=== PATIENT | male | born 2000 | race Asian ===

== ENCOUNTER 2022-05-09 18:05 | Inpatient (IN) ==
--- NOTE | 2022-05-09 18:57 | XRay Report ---
XR chest 1V portable HISTORY: 21 years-old Male cp sob acute chest pain with shortness of breath COMPARISON: None TECHNIQUE: AP view the chest FINDINGS: Moderate size left-sided pneumothorax with pleural separation at the left lung apex of 5.8 cm and lat eral pleural separation of approximately 3 cm. Left midlung atelectasis. Cardiomediastinal and hilar silhouettes are within normal limits. No definite midline shift. The right lung is clear. No acute fr acture. IMPRESSION: Moderate sized left-sided pneumothorax. ACT 112: Negative or not required by law. The above report was generated using voice recognition software. It may contain grammatical, syntax o r spelling errors. Electronically signed by: Jarocho Christensen M.D. 05/09/2022 6:55 PM
[2022-05-09] MEDS ORDERED: LIDOCAINE 1%/EPINEPHRINE 1:100,000 50 ML VIAL INFIL ONE (19:00)
[2022-05-09] MEDS ORDERED: MoRPHine SULFATE 4 MG/ML 1 ML CARP\\VIAL IV STA (19:02)
[2022-05-09] MEDS ORDERED: LORazepam 2 MG/1 ML VIAL IV STA (19:02)
[2022-05-09 19:14] LABS: Basophils # (auto) 0.03 K/uL (0-0.2); Basophils % (auto) 0.5 %; Eosinophils # (auto) 0.24 K/uL (0-0.50); Eosinophils % (auto) 3.6 %; Hematocrit (blood only) 46.7 % (40.1-51.0); Hemoglobin 15.5 g/dl (14.0-18.0); Immature Granulocytes # (auto) 0.01 K/uL (0.00-0.02); Immature Granulocytes % (auto) 0.2 %; Lymphocytes # (auto) 2.24 K/uL (1.2-3.4); Lymphocytes % (auto) 33.8 %; Mean Corpuscular Hemoglobin 28.3 pg (25.0-34.0); Mean Corpuscular Hgb Conc 33.2 g/dL (32.0-36.0); Mean Corpuscular Volume 85.2 fL (80.0-100.0); Mean Platelet Volume 9.8 fL (9.4-12.4); Monocytes # (auto) 0.29 K/uL (0.24-0.82); Monocytes % (auto) 4.4 %; Neutrophils # (auto) 3.82 K/uL (1.4-6.5); Neutrophils % (auto) 57.5 %; Platelet Count 209 K/uL (130-400); RDW Coefficient of Variation 13.2 % (11.5-14.5); RDW Standard Deviation 41.4 fL (36.4-46.3); Red Blood Count 5.48 M/uL (4.63-6.08); White Blood Count 6.63 K/ul (4.8-10.8)
[2022-05-09 19:47] LABS: Alanine Aminotransferase 9 U/L (7-52); Albumin Globulin Ratio 1.6 (0.9-2); Albumin Level 4.7 gm/dl (3.4-5.0); Alkaline Phosphatase 55 U/L (34-104); Anion Gap 5 (3-11); Aspartate Aminotransferase 16 U/L (13-39); BUN Creatinine Ratio 12.5 (10-20); Bilirubin,Total 0.8 mg/dl (0.2-1.0); Blood Urea Nitrogen 13 mg/dl (6-23); Calcium 9.6 mg/dl (8.5-10.1); Carbon Dioxide 31 mmol/L (21-32); Chloride 105 mmol/L (98-107); Creatinine Clr Calc Pharmacy 107.4 ml/min; Est GFR (African American) 118.4 ml/min; Est GFR (Non-African American) 102.2 ml/min; Globulin 2.9 gm/dl (2.5-4.0); Glucose 91 mg/dl (70-99(Fasting)); Lipase 26 U/L (11-82); Potassium 4.5 mmol/L (3.5-5.1); Sodium 141 mmol/L (136-145); Total Protein 7.6 gm/dl (6.0-8.3)
[2022-05-09 19:48] LABS: Troponin I High Sensitivity < 2.3 pg/ml (0-20)
--- NOTE | 2022-05-09 20:48 | XRay Report ---
XR chest 1V portable HISTORY: 21 years-old Male thoravent insertion left-sided pneumothorax COMPARISON: Chest radiograph of same day at 6:47 PM TECHNIQUE: AP view of the chest FINDINGS: Left-sided pneumothorax appears stable to slightly increased in size with apical pleural separation o f approximately 6 cm, previously 5.8 cm. Status post placement of a left-sided chest tube with distal tip projected over the lateral aspect of the left hemithorax. Question mild rightward midline shift. Mild left lung volume loss. The right lung is clear. The bones appear grossly intact. IMPRESSION: Status post placement of a left-sided chest tube. The left-sided pneumothorax has mildly increased in size and there is now mild rightward midline shift which is suspicious for developing te nsion component. Findings were discussed with Dr. Gutierrez on 05/09/2022 at 8:45 PM. ACT 112: Negative or not required by law. The above report was generated using voice recognition software. It may contain grammatical, syntax o r spelling errors. Electronically signed by: Jarocho Christensen M.D. 05/09/2022 8:45 PM
--- NOTE | 2022-05-09 21:10 | XRay Report ---
SINGLE VIEW CHEST CLINICAL HISTORY: Chest tube placement. FINDINGS: An AP, portable, upright chest radiograph is compared to study performed earlier the same d ay 05/09/2022. The cardiomediastinal silhouette is unremarkable. A left pleural catheter has been repo sitioned. There is a small residual left apical pneumothorax with approximately 6 mm of pleural separ ation. The lungs otherwise clear. The bony thorax is grossly intact. IMPRESSION: A left pleural catheter has been repositioned and there is a small residual left apical p neumothorax. This has significantly decreased in size from previous. ACT 112: Negative or not required by law. Electronically signed by: Krish Montano M.D. 05/09/2022 9:08 PM
--- NOTE | 2022-05-09 21:24 | History & Physical Report ---
Date of Service May 09, 2022 Assessment & Plan (1) Spontaneous pneumothorax: Plan: Patient is a 21 yo male with PMHx of COVID-19 infection in March 2022 and latent TB (completed treatment in [facility] in Jan 2020) admitted at [facility] on 05/09/22 due to spontaneous pneumothorax. Spontaneous pneumothorax - Thora-vent placed in the ER prior to admission; maintain catheter overnight - Recheck CXR in AM - Continue supplemental O2 - Tylenol po prn for pain control - No indication for infectious process at this time FENGI: Regular diet Code status: Full code Dispo: Admit to tele History of Present Illness Chief Complaint: SOB Primary Care Provider: [facility] Patient is a 21 yo male with PMHx of COVID-19 infection in March 2022 and latent TB (completed treatment in [facility] in Jan 2020) admitted at [facility] on 05/09/22 due to spontaneous pneumothorax. Patient states that on Thursday afternoon, 3 days ago, after walking back to his room from class, he was sitting in a chair and had an acute onset of "left lung pain." Patient describes this pain as "feeling like the left lung was constricting and moving around." He subsequently had some SOB and CAGLE. Patient notes that this sensation was reminiscent of a pain he had about 1 year ago, but at that time he did not seek medical evaluation. Due to the recurrence, he opted to seek medical evaluation for this episode. He first went to [facility] and they subsequently sent him here due to a pneumothorax on CXR. Patient states that aside from COVID 1 month ago, he has had no other recent URI symptoms including no cough, congestion, rhinorrhea, or fever. He denies any recent trauma including no MVC, physical assault, or sports-related blunt force trauma to the chest wall. No recent travel or flight. 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 He denies abdominal pain, nausea, vomiting, headache, lightheadedness, dizziness, paresthesia, or any other symptoms. In the ER, CXR confirmed a "moderate size left-sided pneumothorax with pleural separation at the left lung apex of 5.8 cm and lateral plelural separation of approximately 3 cm." A left-sided chest tube was placed by ER physician. CBC and CMP are unremarkable. COVID negative. Allergies Allergy/AdvReac Type Severity Reaction Status Date / Time No Known Allergies Allergy Verified 05/09/22 21:51 Home Medications Medication Instructions Recorded Confirmed Type acetaminophen 325 mg tablet 650 mg PO DIRECTED PRN 05/09/22 05/09/22 History (Tylenol) PAIN/FEVER ibuprofen 200 mg tablet (Advil) 200 mg PO DIRECTED PRN 05/09/22 05/09/22 History PAIN/FEVER Past Med/Surg History Medical History (Updated 05/09/22 @ 23:25 by Gretta Munroe, DO) Spontaneous pneumothorax Social History Smoking Status: Never smoker Second Hand Exposure: No; Do You Dip or Chew Tobacco: No; Tobacco Cessation Education Requested by Patient: No Hx Alcohol Use: No Hx Substance Use: No Preferred Language: Maltese Communication Ability: Effective Time Study Clerk Required: No Beliefs That Will Affect Care: None Current Living Situation: Other Current Living Situation Comment: roomate Other Information That Helps Us Care for You: No Feels Safe at Home: Yes Safety Concerns: Feels Safe At This Time Assistive Devices: None Review of Systems Review of Systems: See HPI Physical Exam Physical Exam: GENERAL: No acute distress. Well developed and well nourished. Vital signs reviewed as above. EYES: EOMI. Anicteric sclerae. HENT: Moist mucous membranes. Oxymask in place. RESPIRATORY: Right lung clear to auscultation in all lung leyva. Left lung with absent breath sounds at apex. Otherwise CTA w/o wheezing or crackles. CARDIOVASCULAR: Regular rate and rhythm. No murmurs. No JVD. CHEST WALL: Thora vent in place, left lateral chest wall. ABDOMEN: Soft, non-tender and non-distended. Normal bowel sounds. EXTREMITIES: No edema. Non-tender. 5/5 strength in BUE and BLE. SKIN: Warm, dry. NEUROLOGIC: A/O x3. Normal speech. No focal neurological deficits. PSYCHIATRIC: Cooperative. Appropriate mood and affect. Results & Data Results & Data ([facility]) Vital Signs (Past 12 Hours) Vital Signs Temp Pulse Pulse Resp BP Pulse Ox O2 Del Method 05/09/22 20:40 74 20 100 05/09/22 20:40 123/90 05/09/22 20:35 136/95 05/09/22 20:35 74 14 100 05/09/22 20:30 74 17 91 05/09/22 20:30 135/93 05/09/22 20:25 80 20 100 05/09/22 20:25 130/91 05/09/22 20:20 82 21 100 05/09/22 20:20 130/84 05/09/22 20:15 80 16 100 05/09/22 20:15 134/90 05/09/22 20:10 77 17 100 05/09/22 20:10 130/91 05/09/22 20:05 76 22 100 05/09/22 20:05 129/91 05/09/22 20:00 76 16 100 05/09/22 20:00 142/89 H 05/09/22 19:55 75 20 100 05/09/22 19:55 131/83 05/09/22 19:50 71 13 100 05/09/22 19:50 133/83 05/09/22 19:45 143/94 H 05/09/22 19:45 74 18 100 05/09/22 19:40 69 18 100 05/09/22 19:40 135/89 05/09/22 19:35 75 22 100 05/09/22 19:35 148/84 H 05/09/22 19:30 95 H 24 99 05/09/22 19:30 140/92 05/09/22 19:25 70 18 100 05/09/22 19:25 138/103 H 05/09/22 19:20 69 21 100 05/09/22 19:20 141/93 H 05/09/22 19:10 65 21 100 05/09/22 19:00 65 25 H 100 05/09/22 19:00 138/87 05/09/22 18:53 75 18 99 05/09/22 19:05 77 19 99 Room Air 05/09/22 19:01 Room Air 05/09/22 19:03 70 20 99 Room Air 05/09/22 19:03 99 Room Air 05/09/22 18:37 36.9 C 84 20 123/93 99 Room Air Laboratory Results 05/09/22 05/09/22 05/09/22 Range/Units 19:51 19:07 19:07 WBC 6.63 (4.8-10.8) K/ul RBC 5.48 (4.63-6.08) M/uL Hgb 15.5 (14.0-18.0) g/dl Hct 46.7 (40.1-51.0) % MCV 85.2 (80.0-100.0) fL MCH 28.3 (25.0-34.0) pg MCHC 33.2 (32.0-36.0) g/dL RDW Std Deviation 41.4 (36.4-46.3) fL RDW Coeff of [place] 13.2 (11.5-14.5) % Plt Count 209 (130-400) K/uL MPV 9.8 (9.4-12.4) fL Immature Gran % (Auto) 0.2 % Neut % (Auto) 57.5 % Lymph % (Auto) 33.8 % White % (Auto) 4.4 % Eos % (Auto) 3.6 % Baso % (Auto) 0.5 % Neut # (Auto) 3.82 (1.4-6.5) K/uL Lymph # (Auto) 2.24 (1.2-3.4) K/uL White # (Auto) 0.29 (0.24-0.82) K/uL Eos # (Auto) 0.24 (0-0.50) K/uL Baso # (Auto) 0.03 (0-0.2) K/uL Immature Gran # (Auto) 0.01 (0.00-0.02) K/uL Sodium 141 (136-145) mmol/L Potassium 4.5 (3.5-5.1) mmol/L Chloride 105 (98-107) mmol/L Carbon Dioxide 31 (21-32) mmol/L Anion Gap 5 (3-11) BUN 13 (6-23) mg/dl Creatinine 1.04 (0.6-1.4) mg/dl Est Cr Clr Drug Dosing 107.4 ml/min Est GFR ( Amer) 118.4 ml/min Est GFR (Non-Af Amer) 102.2 ml/min BUN/Creatinine Ratio 12.5 (10-20) Glucose 91 (70-99(Fasting)) mg/dl Calcium 9.6 (8.5-10.1) mg/dl Total Bilirubin 0.8 (0.2-1.0) mg/dl AST 16 (13-39) U/L ALT 9 (7-52) U/L Alkaline Phosphatase 55 (34-104) U/L Troponin I High Sens < 2.3 (0-20) pg/ml Total Protein 7.6 (6.0-8.3) gm/dl Albumin 4.7 (3.4-5.0) gm/dl Globulin 2.9 (2.5-4.0) gm/dl Albumin/Globulin Ratio 1.6 (0.9-2) Lipase 26 (11-82) U/L SARS-CoV-2, RNA, NAAT NEGATIVE (NEGATIVE) Diagnostic Findings [place], [place] [phone] XRay Report Patient:GRISEL EATON Admit Date:05/09/22 MR#:[id number] Address1: Acct ID:[id number] Address2: Date:[address] [facility] Zip: Age:21 Location:ED Sex:M Room/Bed: Att Phy: Diagnosis:LUNG ISSUES, CHEST PAIN [place] Phy:PCP,NO Service Date:05/09/22 [facility] Phy: Interpreting Phy:Jarocho ChristensenAdmit Phy: Ordering Phy:Giorgio Gutierrez MD cc: ~ XR chest 1V portable HISTORY: 21 years-old Male cp sob acute chest pain with shortness of breath COMPARISON: None TECHNIQUE: AP view the chest FINDINGS: Moderate size left-sided pneumothorax with pleural separation at the left lung apex of 5.8 cm and lateral pleural separation of approximately 3 cm. Left midlung atelectasis. Cardiomediastinal and hilar silhouettes are within normal limits. No definite midline shift. The right lung is clear. No acute fracture. IMPRESSION: Moderate sized left-sided pneumothorax. ACT 112: Negative or not required by law. The above report was generated using voice recognition software. It may contain grammatical, syntax or spelling errors. Electronically signed by: Jarocho Christensen M.D. 05/09/2022 6:55 PM Dictated:05/09/[id number] Transcribed: 05/09/221853 Supervising Physician Co-Signing Physician Notes Patient seen and examined, chart reviewed, case discussed with Dr. Munroe and I agree with the assessment and plan as above. In brief, patient is a 21yo male presenting with spontaneous pneumothorax HD stable, adequate oxygenation on room air. Thoravent placed in ER On exam he is resting comfortably, NAD Skin - intact HEENT - NC/AT, PERRL, MMM, neck supple Heart - +S1/S2, regular, no m/r/g Lungs - diminshed breath sounds left apex, Thora-vent in place left mid- clavicular line Abd - +BS, soft, NT/ND Ext - warm, well perfused Labs and images reviewed Assessment/Plan: 21yo male with spontaneous PTX s/p Thoravent placement with o verall improvement -Repeat CXR in AM -Maintain thoravent Resident Activity Tracking Resident Involvement: Resident Care Provided Care Provided: Adult Hospital Medicine
--- NOTE | 2022-05-09 21:57 | XRay Report ---
SINGLE VIEW CHEST CLINICAL HISTORY: Pneumothorax. FINDINGS: 2 AP, portable, upright chest radiographs are compared to study is performed earlier the 05/09/2022. The cardiomediastinal silhouette is unremarkable. A left pleural catheter is again noted. There is a small but enlarging right apical pneumothorax with approximately 2.3 cm of apical p leural separation. The lungs otherwise clear. The bony thorax is grossly intact. IMPRESSION: A left pleural catheter is in place and a small left apical pneumothorax has increased in size from the most recent prior study. ACT 112: Negative or not required by law. Electronically signed by: Krish Montano M.D. 05/09/2022 9:55 PM
[2022-05-09] MEDS ORDERED: ACETAMINOPHEN 325 MG TAB PO PRN (23:27)
--- NOTE | 2022-05-10 02:27 | Billing Data ---
Date of Service May 09, 2022 Coding Level of Care Code 33823 INT INP/OBS CARE
--- NOTE | 2022-05-10 03:28 | Emergency Department Note ---
History of Present Illness General Chief complaint: Shortness of Breath/Dyspnea Stated complaint: LUNG ISSUES, CHEST PAIN Time Seen by Provider: 05/09/22 18:46 History of Present Illness Provider complaint: Chest pain shortness of breath Onset (ago): day(s) 2 Location: chest and left Radiation: non-radiation Maximum Pain Intensity: 4 Current Pain Intensity: 4 Quality: + stabbing and + sharp Associated symptoms: + chest pain and + shortness of breath 21-year-old male presents emergency department for left-sided chest pain. Patient reports that his symptoms began 2 days ago. He reports his pain is over the left chest and radiates to his back. He reports no cough. No traumas or injuries. No recent travel. No cough. No fever. Home Medications Medication Instructions Recorded Confirmed Type acetaminophen 325 mg tablet 650 mg PO DIRECTED PRN 05/09/22 05/09/22 History (Tylenol) PAIN/FEVER ibuprofen 200 mg tablet (Advil) 200 mg PO DIRECTED PRN 05/09/22 05/09/22 History PAIN/FEVER Allergies Allergy/AdvReac Type Severity Reaction Status Date / Time No Known Allergies Allergy Verified 05/09/22 21:51 Past Med/Surg History Medical History No pertinent family history Spontaneous pneumothorax Surgical History No pertinent past surgical history Social History Smoking Status: Never smoker Second Hand Exposure: No; Do You Dip or Chew Tobacco: No; Tobacco Cessation Education Requested by Patient: No Hx Alcohol Use: No Hx Substance Use: No Preferred Language: Armenian Communication Ability: Effective Ceiling Insulation Blower Required: No Beliefs That Will Affect Care: None Current Living Situation: Other Current Living Situation Comment: roomate Other Information That Helps Us Care for You: No Feels Safe at Home: Yes Safety Concerns: Feels Safe At This Time Assistive Devices: None Physical Exam Vital Signs Vital Signs - 24 hr 05/09/22 18:37 05/09/22 19:03 05/09/22 19:03 Temperature 36.9 C Temperature Source Temporal Artery Scan Pulse Rate 84 Pulse Rate [Apical] 70 Pulse Rate from SpO2 Sensor Pulse Rhythm Respiratory Rate 20 20 Respiratory Effort / Characteristics Non-Labored Spontaneous Respiratory Depth Normal Normal Respiratory Pattern Regular Blood Pressure 123/93 Blood Pressure Mean 103 Pulse Oximetry 99 99 99 Oxygen Delivery Method Room Air Room Air Room Air Sepsis Recent Fever Within 48 Hours No Sepsis New/Unexplained Change in Mental Status No Sepsis Action Taken by Nursing No Action Required 05/09/22 19:01 05/09/22 19:05 05/09/22 18:53 Temperature Temperature Source Pulse Rate 77 75 Pulse Rate [Apical] Pulse Rate from SpO2 Sensor 77 Pulse Rhythm Regular Respiratory Rate 19 18 Respiratory Effort / Characteristics Non-Labored Spontaneous Respiratory Depth Normal Respiratory Pattern Regular Blood Pressure Blood Pressure Mean Pulse Oximetry 99 99 Oxygen Delivery Method Room Air Room Air Sepsis Recent Fever Within 48 Hours Sepsis New/Unexplained Change in Mental Status Sepsis Action Taken by Nursing 05/09/22 19:00 05/09/22 19:00 05/09/22 19:10 Temperature Temperature Source Pulse Rate 65 65 Pulse Rate [Apical] Pulse Rate from SpO2 Sensor 66 65 Pulse Rhythm Respiratory Rate 25 H 21 Respiratory Effort / Characteristics Respiratory Depth Respiratory Pattern Blood Pressure 138/87 Blood Pressure Mean 104 Pulse Oximetry 100 100 Oxygen Delivery Method Sepsis Recent Fever Within 48 Hours Sepsis New/Unexplained Change in Mental Status Sepsis Action Taken by Nursing 05/09/22 19:20 05/09/22 19:20 05/09/22 19:25 Temperature Temperature Source Pulse Rate 69 Pulse Rate [Apical] Pulse Rate from SpO2 Sensor 69 Pulse Rhythm Respiratory Rate 21 Respiratory Effort / Characteristics Respiratory Depth Respiratory Pattern Blood Pressure 141/93 H 138/103 H Blood Pressure Mean 109 114 Pulse Oximetry 100 Oxygen Delivery Method Sepsis Recent Fever Within 48 Hours Sepsis New/Unexplained Change in Mental Status Sepsis Action Taken by Nursing 05/09/22 19:25 05/09/22 19:30 05/09/22 19:30 Temperature Temperature Source Pulse Rate 70 95 H Pulse Rate [Apical] Pulse Rate from SpO2 Sensor 73 96 H Pulse Rhythm Respiratory Rate 18 24 Respiratory Effort / Characteristics Respiratory Depth Respiratory Pattern Blood Pressure 140/92 Blood Pressure Mean 108 Pulse Oximetry 100 99 Oxygen Delivery Method Sepsis Recent Fever Within 48 Hours Sepsis New/Unexplained Change in Mental Status Sepsis Action Taken by Nursing 05/09/22 19:35 05/09/22 19:35 05/09/22 19:40 Temperature Temperature Source Pulse Rate 75 Pulse Rate [Apical] Pulse Rate from SpO2 Sensor 75 Pulse Rhythm Respiratory Rate 22 Respiratory Effort / Characteristics Respiratory Depth Respiratory Pattern Blood Pressure 148/84 H 135/89 Blood Pressure Mean 105 104 Pulse Oximetry 100 Oxygen Delivery Method Sepsis Recent Fever Within 48 Hours Sepsis New/Unexplained Change in Mental Status Sepsis Action Taken by Nursing 05/09/22 19:40 05/09/22 19:45 05/09/22 19:45 Temperature Temperature Source Pulse Rate 69 74 Pulse Rate [Apical] Pulse Rate from SpO2 Sensor 69 76 Pulse Rhythm Respiratory Rate 18 18 Respiratory Effort / Characteristics Respiratory Depth Respiratory Pattern Blood Pressure 143/94 H Blood Pressure Mean 110 Pulse Oximetry 100 100 Oxygen Delivery Method Sepsis Recent Fever Within 48 Hours Sepsis New/Unexplained Change in Mental Status Sepsis Action Taken by Nursing 05/09/22 19:50 05/09/22 19:50 05/09/22 19:55 Temperature Temperature Source Pulse Rate 71 Pulse Rate [Apical] Pulse Rate from SpO2 Sensor 71 Pulse Rhythm Respiratory Rate 13 Respiratory Effort / Characteristics Respiratory Depth Respiratory Pattern Blood Pressure 133/83 131/83 Blood Pressure Mean 99 99 Pulse Oximetry 100 Oxygen Delivery Method Sepsis Recent Fever Within 48 Hours Sepsis New/Unexplained Change in Mental Status Sepsis Action Taken by Nursing 05/09/22 19:55 05/09/22 20:00 05/09/22 20:00 Temperature Temperature Source Pulse Rate 75 76 Pulse Rate [Apical] Pulse Rate from SpO2 Sensor 75 76 Pulse Rhythm Respiratory Rate 20 16 Respiratory Effort / Characteristics Respiratory Depth Respiratory Pattern Blood Pressure 142/89 H Blood Pressure Mean 106 Pulse Oximetry 100 100 Oxygen Delivery Method Sepsis Recent Fever Within 48 Hours Sepsis New/Unexplained Change in Mental Status Sepsis Action Taken by Nursing 05/09/22 20:05 05/09/22 20:05 05/09/22 20:10 Temperature Temperature Source Pulse Rate 76 Pulse Rate [Apical] Pulse Rate from SpO2 Sensor 76 Pulse Rhythm Respiratory Rate 22 Respiratory Effort / Characteristics Respiratory Depth Respiratory Pattern Blood Pressure 129/91 130/91 Blood Pressure Mean 103 104 Pulse Oximetry 100 Oxygen Delivery Method Sepsis Recent Fever Within 48 Hours Sepsis New/Unexplained Change in Mental Status Sepsis Action Taken by Nursing 05/09/22 20:10 05/09/22 20:15 05/09/22 20:15 Temperature Temperature Source Pulse Rate 77 80 Pulse Rate [Apical] Pulse Rate from SpO2 Sensor 78 80 Pulse Rhythm Respiratory Rate 17 16 Respiratory Effort / Characteristics Respiratory Depth Respiratory Pattern Blood Pressure 134/90 Blood Pressure Mean 104 Pulse Oximetry 100 100 Oxygen Delivery Method Sepsis Recent Fever Within 48 Hours Sepsis New/Unexplained Change in Mental Status Sepsis Action Taken by Nursing 05/09/22 20:20 05/09/22 20:20 05/09/22 20:25 Temperature Temperature Source Pulse Rate 82 Pulse Rate [Apical] Pulse Rate from SpO2 Sensor 82 Pulse Rhythm Respiratory Rate 21 Respiratory Effort / Characteristics Respiratory Depth Respiratory Pattern Blood Pressure 130/84 130/91 Blood Pressure Mean 99 104 Pulse Oximetry 100 Oxygen Delivery Method Sepsis Recent Fever Within 48 Hours Sepsis New/Unexplained Change in Mental Status Sepsis Action Taken by Nursing 05/09/22 20:25 05/09/22 20:30 05/09/22 20:30 Temperature Temperature Source Pulse Rate 80 74 Pulse Rate [Apical] Pulse Rate from SpO2 Sensor 79 Pulse Rhythm Respiratory Rate 20 17 Respiratory Effort / Characteristics Respiratory Depth Respiratory Pattern Blood Pressure 135/93 Blood Pressure Mean 107 Pulse Oximetry 100 91 Oxygen Delivery Method Sepsis Recent Fever Within 48 Hours Sepsis New/Unexplained Change in Mental Status Sepsis Action Taken by Nursing 05/09/22 20:35 05/09/22 20:35 05/09/22 20:40 Temperature Temperature Source Pulse Rate 74 Pulse Rate [Apical] Pulse Rate from SpO2 Sensor 75 Pulse Rhythm Respiratory Rate 14 Respiratory Effort / Characteristics Respiratory Depth Respiratory Pattern Blood Pressure 136/95 123/90 Blood Pressure Mean 108 101 Pulse Oximetry 100 Oxygen Delivery Method Sepsis Recent Fever Within 48 Hours Sepsis New/Unexplained Change in Mental Status Sepsis Action Taken by Nursing 05/09/22 20:40 05/09/22 20:46 05/09/22 20:46 Temperature Temperature Source Pulse Rate 74 69 Pulse Rate [Apical] Pulse Rate from SpO2 Sensor 75 71 Pulse Rhythm Respiratory Rate 20 14 Respiratory Effort / Characteristics Respiratory Depth Respiratory Pattern Blood Pressure 127/86 Blood Pressure Mean 99 Pulse Oximetry 100 100 Oxygen Delivery Method Sepsis Recent Fever Within 48 Hours Sepsis New/Unexplained Change in Mental Status Sepsis Action Taken by Nursing 05/09/22 20:50 05/09/22 20:50 05/09/22 20:55 Temperature Temperature Source Pulse Rate 64 77 Pulse Rate [Apical] Pulse Rate from SpO2 Sensor 65 Pulse Rhythm Respiratory Rate 13 17 Respiratory Effort / Characteristics Respiratory Depth Respiratory Pattern Blood Pressure 132/88 Blood Pressure Mean 102 Pulse Oximetry 100 Oxygen Delivery Method Sepsis Recent Fever Within 48 Hours Sepsis New/Unexplained Change in Mental Status Sepsis Action Taken by Nursing 05/09/22 20:55 05/09/22 21:00 05/09/22 21:00 Temperature Temperature Source Pulse Rate 83 Pulse Rate [Apical] Pulse Rate from SpO2 Sensor 81 Pulse Rhythm Respiratory Rate 24 Respiratory Effort / Characteristics Respiratory Depth Respiratory Pattern Blood Pressure 132/83 128/86 Blood Pressure Mean 99 100 Pulse Oximetry 100 Oxygen Delivery Method Sepsis Recent Fever Within 48 Hours Sepsis New/Unexplained Change in Mental Status Sepsis Action Taken by Nursing 05/09/22 21:10 05/09/22 21:20 05/09/22 21:30 Temperature Temperature Source Pulse Rate 80 85 Pulse Rate [Apical] Pulse Rate from SpO2 Sensor 81 79 Pulse Rhythm Respiratory Rate 19 13 Respiratory Effort / Characteristics Respiratory Depth Respiratory Pattern Blood Pressure 131/77 Blood Pressure Mean 95 Pulse Oximetry 100 97 Oxygen Delivery Method Sepsis Recent Fever Within 48 Hours Sepsis New/Unexplained Change in Mental Status Sepsis Action Taken by Nursing 05/09/22 21:30 Temperature Temperature Source Pulse Rate 82 Pulse Rate [Apical] Pulse Rate from SpO2 Sensor 82 Pulse Rhythm Respiratory Rate 18 Respiratory Effort / Characteristics Respiratory Depth Respiratory Pattern Blood Pressure Blood Pressure Mean Pulse Oximetry 100 Oxygen Delivery Method Sepsis Recent Fever Within 48 Hours Sepsis New/Unexplained Change in Mental Status Sepsis Action Taken by Nursing Physical Exam GENERAL: He is oriented to person, place, and time. He appears well-developed and well-nourished. He does not appear distressed. HENT: Exam performed. - Head: Normocephalic and atraumatic. NECK: Normal range of motion. Neck supple. No JVD present. CV: Normal rate, regular rhythm, normal heart sounds and intact distal pulses. There is no peripheral edema. Palpable radial pulses bue. PULM/CHEST: Diminished left-sided breath sounds. ABD: The abdomen is soft. NEURO: Motor and sensation grossly intact. Procedures Free Text Procedures Tube Thoracostomy Indication: Pneumothorax Written consent was obtained after the risks and benefits were explained, in cluding but not limited to cardiac/liver/lung injury, bleeding, scarring, infection, pain, and bone/joint/nerve damage. At this time, the risks of the procedure are less than the risks of NOT performing the procedure. A time out was taken and the correct patient and site identified. The patient was prepped and draped in the standard surgical fashion. 1% lidocaine with epinephrine was infused over the fifth intercostal space into the subcutaneous tissue. A 3 cm incision was made transversely in the mid axillary line over the fifth intercostal rib. Thora vent was placed with trocar and then secured to the chest wall. Air was aspirated now. There was good movement of the right diaphragm. Course Course 1845: The patient was evaluated in room B8. A complete history and physical exam was performed Cardiac monitoring: An order was placed for continuous cardiac monitoring. The monitor shows a rate of 80 with sinus rhythm 2019: Vent placed for left-sided pneumothorax. See procedure note. We will plan on admitting the patient to the [facility]ist service. 2054: Received a call from radiology that the patient's Thora vent is in place however the pneumothorax has not decreased in size and might have increased in size slightly. Syringe attached to Thora vent and air was manually aspirated fu rther. On repeat chest x-ray there is significant improvement of the left-sided pneumothorax and the left lung appears almost completely reinflated. Hospitalist was made aware of this and will limit the patient to their service. Labs are within normal limits including negative troponin. Administered Medications Discontinued Medications Lidocaine/Epinephrine (Lidocaine 1%/Epinephrine 1:100,000 50 Ml Vial) 50 ml INFIL NOW ONE Stop: 05/09/22 19:01 Last Admin: 05/09/22 19:45 Dose: 50 ml Documented By: CONG Lorazepam (Lorazepam 2 Mg/1 Ml Vial) 1 mg IV NOW STA Stop: 05/09/22 19:03 Last Admin: 05/09/22 19:45 Dose: 1 mg Documented By: CONG Morphine Sulfate (Morphine Sulfate 4 Mg/Ml 1 Ml Carp\Vial) 4 mg IV NOW STA Stop: 05/09/22 19:03 Last Admin: 05/09/22 19:45 Dose: 4 mg Documented By: CONG Medical Decision Making Laboratory Data Attestation: I reviewed the patient's lab results. 05/09/22 19:07 05/09/22 19:07 Lab Results 05/09/22 05/09/22 05/09/22 Range/Units 19:07 19:07 19:51 WBC 6.63 (4.8-10.8) K/ul RBC 5.48 (4.63-6.08) M/uL Hgb 15.5 (14.0-18.0) g/dl Hct 46.7 (40.1-51.0) % MCV 85.2 (80.0-100.0) fL MCH 28.3 (25.0-34.0) pg MCHC 33.2 (32.0-36.0) g/dL RDW Std Deviation 41.4 (36.4-46.3) fL RDW Coeff of [place] 13.2 (11.5-14.5) % Plt Count 209 (130-400) K/uL MPV 9.8 (9.4-12.4) fL Immature Gran % (Auto) 0.2 % Neut % (Auto) 57.5 % Lymph % (Auto) 33.8 % [place] % (Auto) 4.4 % Eos % (Auto) 3.6 % Baso % (Auto) 0.5 % Neut # (Auto) 3.82 (1.4-6.5) K/uL Lymph # (Auto) 2.24 (1.2-3.4) K/uL [place] # (Auto) 0.29 (0.24-0.82) K/uL Eos # (Auto) 0.24 (0-0.50) K/uL Baso # (Auto) 0.03 (0-0.2) K/uL Immature Gran # (Auto) 0.01 (0.00-0.02) K/uL Sodium 141 (136-145) mmol/L Potassium 4.5 (3.5-5.1) mmol/L Chloride 105 (98-107) mmol/L Carbon Dioxide 31 (21-32) mmol/L Anion Gap 5 (3-11) BUN 13 (6-23) mg/dl Creatinine 1.04 (0.6-1.4) mg/dl Est Cr Clr Drug Dosing 107.4 ml/min Est GFR ( Amer) 118.4 ml/min Est GFR (Non-Af Amer) 102.2 ml/min BUN/Creatinine Ratio 12.5 (10-20) Glucose 91 (70-99(Fasting)) mg/dl Calcium 9.6 (8.5-10.1) mg/dl Total Bilirubin 0.8 (0.2-1.0) mg/dl AST 16 (13-39) U/L ALT 9 (7-52) U/L Alkaline Phosphatase 55 (34-104) U/L Troponin I High Sens < 2.3 (0-20) pg/ml Total Protein 7.6 (6.0-8.3) gm/dl Albumin 4.7 (3.4-5.0) gm/dl Globulin 2.9 (2.5-4.0) gm/dl Albumin/Globulin Ratio 1.6 (0.9-2) Lipase 26 (11-82) U/L SARS-CoV-2, RNA, NAAT NEGATIVE (NEGATIVE) Imaging Data Attestation: I personally reviewed and interpreted this imaging study as follows: Radiologist's Impression: Chest X-Ray 05/09/22 18:46 XR chest 1V portable HISTORY: 21 years-old Male cp sob acute chest pain with shortness of breath COMPARISON: None TECHNIQUE: AP view the chest FINDINGS: Moderate size left-sided pneumothorax with pleural separation at the left lung apex of 5.8 cm and lateral pleural separation of approximately 3 cm. Left midlung atelectasis. Cardiomediastinal and hilar silhouettes are within normal limits. No definite midline shift. The right lung is clear. No acute fracture. IMPRESSION: Moderate sized left-sided pneumothorax. ACT 112: Negative or not required by law. The above report was generated using voice recognition software. It may contain grammatical, syntax or spelling errors. Electronically signed by: Jarocho Christensen M.D. 05/09/2022 6:55 PM Chest X-Ray 05/09/22 19:40 XR chest 1V portable HISTORY: 21 years-old Male thoravent insertion left-sided pneumothorax COMPARISON: Chest radiograph of same day at 6:47 PM TECHNIQUE: AP view of the chest FINDINGS: Left-sided pneumothorax appears stable to slightly increased in size with apical pleural separation of approximately 6 cm, previously 5.8 cm. Status post placement of a left-sided chest tube with distal tip projected over the lateral aspect of the left hemithorax. Question mild rightward midline shift. Mild left lung volume loss. The right lung is clear. The bones appear grossly intact. IMPRESSION: Status post placement of a left-sided chest tube. The left-sided pneumothorax has mildly increased in size and there is now mild rightward midline shift which is suspicious for developing tension component. Findings were discussed with Dr. Gutierrez on 05/09/2022 at 8:45 PM. ACT 112: Negative or not required by law. The above report was generated using voice recognition software. It may contain grammatical, syntax or spelling errors. Electronically signed by: Jarocho Christensen M.D. 05/09/2022 8:45 PM Chest X-Ray 05/09/22 20:49 SINGLE VIEW CHEST CLINICAL HISTORY: Chest tube placement. FINDINGS: An AP, portable, upright chest radiograph is compared to study performed earlier the same day 05/09/2022. The cardiomediastinal silhouette is unremarkable. A left pleural catheter has been repositioned. There is a small residual left apical pneumothorax with approximately 6 mm of pleural separation. The lungs otherwise clear. The bony thorax is grossly intact. IMPRESSION: A left pleural catheter has been repositioned and there is a small residual left apical pneumothorax. This has significantly decreased in size from previous. ACT 112: Negative or not required by law. Electronically signed by: Krish Montano M.D. 05/09/2022 9:08 PM ECG Data Attestation: I personally reviewed and interpreted this ECG as follows: Indication: + chest pain Rate (beats per minute): 64 Rhythm: + normal sinus ECG Intervals/blocks: + Normal QRS, + Normal IN and + Normal QT-c ECG ST segments: + Normal ST segments MDM Narrative 1846: The patient was evaluated in room B8. A complete history and physical exam was performed Cardiac monitoring: An order was placed for continuous cardiac monitoring. The monitor shows a rate of 80 with sinus rhythm 2019: Vent placed for left-sided pneumothorax. See procedure note. We will plan on admitting the patient to the [facility]ist service. 2054: Received a call from radiology that the patient's Thora vent is in place however the pneumothorax has not decreased in size and might have increased in size slightly. Syringe attached to Thora vent and air was manually aspirated further. On repeat chest x-ray there is significant improvement of the left- sided pneumothorax and the left lung appears almost completely reinflated. Hospitalist was made aware of this and will limit the patient to their service. Labs are within normal limits including negative troponin. Impression & Plan Spontaneous pneumothorax Discharge Plan Visit Data Chief Complaint: Shortness of Breath/Dyspnea Stated Complaint: LUNG ISSUES, CHEST PAIN ED Provider: Giorgio Gutierrez Discharge Problem: Spontaneous pneumothorax Patient Disposition: Admitted As Inpatient Discharge Instructions Interventions: ED Discharge Assessment Last Done: 05/09/22 22:29
--- NOTE | 2022-05-10 07:45 | Hospitalist Progress Note ---
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 Spontaneous pneumothorax - Thora-vent placed in the ER prior to admission; maintain catheter for now - Consulted pulmonology for guidance regarding thora-vent management - Repeat CXR 05/10 showing minimal decrease in size from prior exam, 20 mm. - Continue supplemental O2 PRN -- no requirement at this time - Tylenol PO prn for pain control -- has not required any doses since admission - No signs of infectious process at this time FENGI: Regular diet Code status: Full code Dispo: Admit to tele Admission and Anticipated Discharge Date Admission Date: May 09, 2022 Supervising Physician Co-Signing Physician Notes Resident Physician Supervision Note: I independently interviewed and examined the patient and verified the monsivais history and physical, reviewed labs and image studies and agree with resident findings and care plan. Subjective Seen at bedside this AM. No complaints at this time. Saturating 100% on room air but does desaturate transiently to high 80s with lots of movement or exertion. Otherwise denying CP, palp, n/v, abd pain, f/c. Review of Systems Review of Systems: per HPI Physical Exam Physical Exam: GENERAL: A&Ox3. NAD. CHEST/LUNGS: CTAB A/P. No crackles, wheezes, rales, rhonchi. HEART: RRR. No m/g/r. No carotid bruits. SKIN: Warm and dry. No rashes or lesions. PSYCHIATRIC: Euthymic affect, no SI, no pressured speech, no hallucinations Results & Data Results & Data ([facility]) Vital Signs (Past 12 Hours) Vital Signs Temp Pulse Pulse Resp BP BP Pulse Ox 05/09/22 23:02 05/10/22 05:29 75 05/09/22 23:23 05/10/22 03:11 36.6 C 53 L 16 116/60 97 05/09/22 23:50 36.8 C 68 18 130/68 100 05/09/22 21:50 69 19 99 05/09/22 21:40 78 16 100 05/09/22 21:30 82 18 100 05/09/22 21:30 131/77 05/09/22 21:20 85 13 97 05/09/22 21:10 80 19 100 05/09/22 21:00 83 24 100 05/09/22 21:00 128/86 05/09/22 20:55 132/83 05/09/22 20:55 77 17 05/09/22 20:50 64 13 100 05/09/22 20:50 132/88 05/09/22 20:46 69 14 100 05/09/22 20:46 127/86 05/09/22 20:40 74 20 100 05/09/22 20:40 123/90 05/09/22 20:35 136/95 05/09/22 20:35 74 14 100 05/09/22 20:30 74 17 91 05/09/22 20:30 135/93 05/09/22 20:25 80 20 100 05/09/22 20:25 130/91 05/09/22 20:20 82 21 100 05/09/22 20:20 130/84 05/09/22 20:15 80 16 100 05/09/22 20:15 134/90 05/09/22 20:10 77 17 100 05/09/22 20:10 130/91 05/09/22 20:05 76 22 100 05/09/22 20:05 129/91 05/09/22 20:00 76 16 100 05/09/22 20:00 142/89 H 05/09/22 19:55 75 20 100 05/09/22 19:55 131/83 05/09/22 19:50 71 13 100 05/09/22 19:50 133/83 05/09/22 19:45 143/94 H 05/09/22 19:45 74 18 100 Pulse Ox O2 Del Method O2 Del Method O2 Flow Rate O2 Flow Rate 05/09/22 23:02 98 Non-rebreather 05/10/22 05:29 05/09/22 23:23 Non-rebreather 15 05/10/22 03:11 Non-rebreather 15.0 05/09/22 23:50 Room Air 05/09/22 21:50 05/09/22 21:40 05/09/22 21:30 05/09/22 21:30 05/09/22 21:20 05/09/22 21:10 05/09/22 21:00 05/09/22 21:00 05/09/22 20:55 05/09/22 20:55 05/09/22 20:50 05/09/22 20:50 05/09/22 20:46 05/09/22 20:46 05/09/22 20:40 05/09/22 20:40 05/09/22 20:35 05/09/22 20:35 05/09/22 20:30 05/09/22 20:30 05/09/22 20:25 05/09/22 20:25 05/09/22 20:20 05/09/22 20:20 05/09/22 20:15 05/09/22 20:15 05/09/22 20:10 05/09/22 20:10 05/09/22 20:05 05/09/22 20:05 05/09/22 20:00 05/09/22 20:00 05/09/22 19:55 05/09/22 19:55 05/09/22 19:50 05/09/22 19:50 05/09/22 19:45 05/09/22 19:45 Resident Activity Tracking Resident Involvement: Resident Care Provided Care Provided: Adult Hospital Medicine
[2022-05-10 08:11] LABS: Basophils # (auto) 0.02 K/uL (0-0.2); Basophils % (auto) 0.4 %; Eosinophils # (auto) 0.23 K/uL (0-0.50); Eosinophils % (auto) 4.6 %; Hematocrit (blood only) 42.1 % (40.1-51.0); Hemoglobin 14.4 g/dl (14.0-18.0); Immature Granulocytes # (auto) 0.01 K/uL (0.00-0.02); Immature Granulocytes % (auto) 0.2 %; Lymphocytes # (auto) 1.86 K/uL (1.2-3.4); Lymphocytes % (auto) 37.6 %; Mean Corpuscular Hemoglobin 28.5 pg (25.0-34.0); Mean Corpuscular Hgb Conc 34.2 g/dL (32.0-36.0); Mean Corpuscular Volume 83.4 fL (80.0-100.0); Mean Platelet Volume 9.7 fL (9.4-12.4); Monocytes # (auto) 0.33 K/uL (0.24-0.82); Monocytes % (auto) 6.7 %; Neutrophils % (auto) 50.5 %; Platelet Count 181 K/uL (130-400); RDW Coefficient of Variation 13.2 % (11.5-14.5); RDW Standard Deviation 40.4 fL (36.4-46.3); Red Blood Count 5.05 M/uL (4.63-6.08); White Blood Count 4.95 K/ul (4.8-10.8)
[2022-05-10 08:55] LABS: BUN Creatinine Ratio 14.1 (10-20); Calcium 8.7 mg/dl (8.5-10.1); Creatinine Clr Calc Pharmacy 131.4 ml/min; Est GFR (African American) 144.4 ml/min; Est GFR (Non-African American) 124.6 ml/min; Potassium 3.6 mmol/L (3.5-5.1)
[2022-05-10] MEDS ORDERED: FLUARIX QUADRIVALENT 0.5 ML SYR IM ONE (09:00)
--- NOTE | 2022-05-10 09:36 | XRay Report ---
XR chest 1V portable CLINICAL HISTORY: re-eval pneumothorax TECHNIQUE: Single frontal radiograph of the chest was obtained. Comparison: Comparison is made to chest radiograph 05/09/2022 FINDINGS: No lines and tubes are seen. The cardiomediastinal silhouette is normal. The lungs are clear. A left pneumothorax is not well seen but appears minimally decreased in size from prior exam 20 mm. IMPRESSION: Stable to minimally decreased left apical pneumothorax. ACT 112: Negative or not required by law. Electronically signed by: Miko Logan M.D. 05/10/2022 9:33 AM
--- NOTE | 2022-05-10 12:53 | Pulmonary Consultation ---
Date of Consultation May 10, 2022 Assessment & Plan (1) Spontaneous pneumothorax: Plan Impression: 21-year-old male without significant pulmonary history presents now with spontaneous pneumothorax. He is thin and asthenic. Etiologies would include Steven Ilana Dubay syndrome, subpleural blebs, or structural lung disease. Recommendations: 1. Pneumothorax: We will obtain CT of the chest to evaluate for potential structural abnormalities of the lung. This will also allow for interrogation to see whether or not the pneumothorax is resolved. 2. We will review CT scan once it is available. If it is resolved, can discontinue the Thora vent patient can be dismissed from the hospital. 3. Patient should have pulmonary function testing performed in about 6 to 8 weeks to exclude underlying asthma. He should also be advised not to fly scuba dive or participate in any activities resulting in significant changes in barometric pressure for the next 4 weeks. 3. If the patient should have recurrence of the pneumothorax or a second episode, referral to thoracic surgery for consideration of pleurodesis might be appropriate. The above recommendations and plan were discussed with the patient. Questions were answered to the best my ability. He expressed understanding and is in agreement with plan as outlined. History of Present Illness Attending Physician: Marcie Hogue MD History of Present Illness Asked by hospitalist to assist in evaluation management this patient with spontaneous pneumothorax. History is obtained from discussion with patient and reviewed electronic medical record. Patient is a 21-year-old male with no prior history. He presented to the emergency room yesterday with acute onset of chest pain. He was diagnosed with COVID in March 2022. He was not exerting himself 3 days prior to admission but had the acute onset of left thoracic pain. He had similar symptoms about a year ago was evaluated medically but no chest x-ray was performed. He had a chest x-ray performed at [facility] showing a pneumothorax and was referred here. A Thora vent was placed in the emergency room and the patient was admitted. He is having some pain. His breathing is improved. Patient denies any prior history of asthma. No exertion or trauma. No family history of pneumothorax that he is aware of in a first-degree relative. He has not had imaging of his chest performed. He denies vaping e-cigarette tobacco or marijuana use. He is otherwise healthy. Allergies Allergy/AdvReac Type Severity Reaction Status Date / Time No Known Allergies Allergy Verified 05/09/22 21:51 Home Medications Medication Instructions Recorded Confirmed Type acetaminophen 325 mg tablet 650 mg PO DIRECTED PRN 05/09/22 05/09/22 History (Tylenol) PAIN/FEVER ibuprofen 200 mg tablet (Advil) 200 mg PO DIRECTED PRN 05/09/22 05/09/22 History PAIN/FEVER Patient History Medical History No pertinent family history Spontaneous pneumothorax Surgical History No pertinent past surgical history Social History Smoking Status: Never smoker Second Hand Exposure: No; Do You Dip or Chew Tobacco: No; Tobacco Cessation Education Requested by Patient: No Hx Alcohol Use: No Hx Substance Use: No Preferred Language: Portuguese Communication Ability: Effective Education And Training Manager Required: No Beliefs That Will Affect Care: None Current Living Situation: Other Current Living Situation Comment: roomate Other Information That Helps Us Care for You: No Feels Safe at Home: Yes Safety Concerns: Feels Safe At This Time Assistive Devices: None Review of Systems Review of Systems: All systems reviewed & are unremarkable except as noted in Subjective Physical Exam Constitutional: WD/WN, vitals as above Neck: trachea midline, no thyromegaly Respiratory: normal respiratory effort, lungs clear to auscultation Cardiovascular: RRR, no murmur, no edema Gastrointestinal (Abdomen): normal bowel sounds, soft, nontender, no hepatosplenomegaly Musculoskeletal: Extremities: extremities normal to inspection Skin: no rashes, warm and dry Neurologic: Nonfocal exam Lymphatic: no cervical lymphadenopathy Results & Data Results & Data ([facility]) Vital Signs (Past 12 Hours) Vital Signs Temp Pulse Pulse Resp BP Pulse Ox O2 Del Method 05/10/22 12:33 36.6 C 79 16 115/69 96 Room Air 05/10/22 08:00 Room Air 05/10/22 08:00 36.3 C L 51 L 16 114/76 100 Room Air 05/10/22 05:29 75 05/10/22 03:11 36.6 C 53 L 16 116/60 97 Non-rebreather O2 Flow Rate 05/10/22 12:33 05/10/22 08:00 05/10/22 08:00 05/10/22 05:29 05/10/22 03:11 15.0 Critical Care Results & Data Vital Signs (Past 12 Hours) Vital Signs Temp Pulse Pulse Resp BP Pulse Ox O2 Del Method 05/10/22 12:33 36.6 C 79 16 115/69 96 Room Air 05/10/22 08:00 Room Air 05/10/22 08:00 36.3 C L 51 L 16 114/76 100 Room Air 05/10/22 05:29 75 05/10/22 03:11 36.6 C 53 L 16 116/60 97 Non-rebreather O2 Flow Rate 05/10/22 12:33 05/10/22 08:00 05/10/22 08:00 05/10/22 05:29 05/10/22 03:11 15.0 Lab & Micro Results (Past 24 Hours) RBC 5.05 M/uL (4.63-6.08) 05/10/22 WBC 4.95 K/ul (4.8-10.8) 05/10/22 Hgb 14.4 g/dl (14.0-18.0) 05/10/22 Hct 42.1 % (40.1-51.0) 05/10/22 MCV 83.4 fL (80.0-100.0) 05/10/22 MCH 28.5 pg (25.0-34.0) 05/10/22 MCHC 34.2 g/dL (32.0-36.0) 05/10/22 RDW Standard Deviation 40.4 fL (36.4-46.3) 05/10/22 RDW Coefficient of Variation 13.2 % (11.5-14.5) 05/10/22 Plt Count 181 K/uL (130-400) 05/10/22 MPV 9.7 fL (9.4-12.4) 05/10/22 Neutrophils (%) (Auto) 50.5 % 05/10/22 Lymphocytes (%) (Auto) 37.6 % 05/10/22 Monocytes # (Auto) 0.33 K/uL (0.24-0.82) 05/10/22 Eosinophils # (Auto) 0.23 K/uL (0-0.50) 05/10/22 Immature Granulocyte % (Auto) 0.2 % 05/10/22 Neutrophils # (Auto) 2.50 K/uL (1.4-6.5) 05/10/22 Lymphocytes # (Auto) 1.86 K/uL (1.2-3.4) 05/10/22 Monocytes # (Auto) 0.33 K/uL (0.24-0.82) 05/10/22 Eosinophils # (Auto) 0.23 K/uL (0-0.50) 05/10/22 Basophils # (Auto) 0.02 K/uL (0-0.2) 05/10/22 Immature Granulocyte # (Auto) 0.01 K/uL (0.00-0.02) 3 Na 139 mmol/L (136-145) 05/10/22 K 3.6 mmol/L (3.5-5.1) 05/10/22 Cl 107 mmol/L (98-107) 05/10/22 CO2 28 mmol/L (21-32) 05/10/22 Anion Gap 4 (3-11) 05/10/22 BUN 12 mg/dl (6-23) 05/10/22 Creatinine 0.85 mg/dl (0.6-1.4) 05/10/22 Estimated GFR ( Amer) 144.4 ml/min 05/10/22 Estimated GFR (Non-Af Amer) 124.6 ml/min 05/10/22 BUN/Creatinine Ratio 14.1 (10-20) 05/10/22 Glu 88 mg/dl (70-99(Fasting)) 05/10/22 Ca 8.7 mg/dl (8.5-10.1) 05/10/22 Total Bilirubin 0.8 mg/dl (0.2-1.0) 05/09/22 AST 16 U/L (13-39) 05/09/22 ALT 9 U/L (7-52) 05/09/22 Alkaline Phosphatase 55 U/L (34-104) 05/09/22 TP 7.6 gm/dl (6.0-8.3) 05/09/22 Albumin 4.7 gm/dl (3.4-5.0) 05/09/22 Globulin 2.9 gm/dl (2.5-4.0) 05/09/22 Albumin/Globulin Ratio 1.6 (0.9-2) 05/09/22 Calcium Level 8.7 mg/dl (8.5-10.1) 05/10/22 07:47 Diagnostic Findings (Past 24 Hours) Chest X-Ray 05/09/22 18:46 XR chest 1V portable HISTORY: 21 years-old Male cp sob acute chest pain with shortness of breath COMPARISON: None TECHNIQUE: AP view the chest FINDINGS: Moderate size left-sided pneumothorax with pleural separation at the left lung apex of 5.8 cm and lateral pleural separation of approximately 3 cm. Left midlung atelectasis. Cardiomediastinal and hilar silhouettes are within normal limits. No definite midline shift. The right lung is clear. No acute fracture. IMPRESSION: Moderate sized left-sided pneumothorax. ACT 112: Negative or not required by law. The above report was generated using voice recognition software. It may contain grammatical, syntax or spelling errors. Electronically signed by: Jarocho Christensen M.D. 05/09/2022 6:55 PM Chest X-Ray 05/09/22 19:40 XR chest 1V portable HISTORY: 21 years-old Male thoravent insertion left-sided pneumothorax COMPARISON: Chest radiograph of same day at 6:47 PM TECHNIQUE: AP view of the chest FINDINGS: Left-sided pneumothorax appears stable to slightly increased in size with apical pleural separation of approximately 6 cm, previously 5.8 cm. Status post placement of a left-sided chest tube with distal tip projected over the lateral aspect of the left hemithorax. Question mild rightward midline shift. Mild left lung volume loss. The right lung is clear. The bones appear grossly intact. IMPRESSION: Status post placement of a left-sided chest tube. The left-sided pneumothorax has mildly increased in size and there is now mild rightward midline shift which is suspicious for developing tension component. Findings were discussed with Dr. Gutierrez on 05/09/2022 at 8:45 PM. ACT 112: Negative or not required by law. The above report was generated using voice recognition software. It may contain grammatical, syntax or spelling errors. Electronically signed by: Jarocho Christensen M.D. 05/09/2022 8:45 PM Chest X-Ray 05/09/22 20:49 SINGLE VIEW CHEST CLINICAL HISTORY: Chest tube placement. FINDINGS: An AP, portable, upright chest radiograph is compared to study performed earlier the same day 05/09/2022. The cardiomediastinal silhouette is unremarkable. A left pleural catheter has been repositioned. There is a small residual left apical pneumothorax with approximately 6 mm of pleural separation. The lungs otherwise clear. The bony thorax is grossly intact. IMPRESSION: A left pleural catheter has been repositioned and there is a small residual left apical pneumothorax. This has significantly decreased in size from previous. ACT 112: Negative or not required by law. Electronically signed by: Krish Montano M.D. 05/09/2022 9:08 PM Chest X-Ray 05/09/22 21:37 SINGLE VIEW CHEST CLINICAL HISTORY: Pneumothorax. FINDINGS: 2 AP, portable, upright chest radiographs are compared to study is performed earlier the same day 05/09/2022. The cardiomediastinal silhouette is unremarkable. A left pleural catheter is again noted. There is a small but enlarging right apical pneumothorax with approximately 2.3 cm of apical pleural separation. The lungs otherwise clear. The bony thorax is grossly intact. IMPRESSION: A left pleural catheter is in place and a small left apical pneumothorax has increased in size from the most recent prior study. ACT 112: Negative or not required by law. Electronically signed by: Krish Montano M.D. 05/09/2022 9:55 PM Chest X-Ray 05/10/22 07:00 XR chest 1V portable CLINICAL HISTORY: re-eval pneumothorax TECHNIQUE: Single frontal radiograph of the chest was obtained. Comparison: Comparison is made to chest radiograph 05/09/2022 FINDINGS: No lines and tubes are seen. The cardiomediastinal silhouette is normal. The lungs are clear. A left pneumothorax is not well seen but appears minimally decreased in size from prior exam 20 mm. IMPRESSION: Stable to minimally decreased left apical pneumothorax. ACT 112: Negative or not required by law. Electronically signed by: Miko Logan M.D. 05/10/2022 9:33 AM I & O Totals 24 Hours 05/09/22 05/10/22 05/11/22 06:59 06:59 06:59 Output Total 0 / 0 Balance 0 / 0 Cumulative 05/09/22 18:05 thru 05/10/22 05:36 Output Total 0 Balance 0 RT Ventilator Mngmt (Last Documented) Ventilator Ordered Settings Respiratory Rate 16 05/10/22 12:33 Ventilator - PT Measurements Respiratory Rate 16 PG Care Time/CCT Total # of Minutes Spent Total Time Spent with Patient: Total time spent is greater than 50% in coordination of care (as documented) at patient's floor/unit and/or counseling patient: Coding Level of Care Code INP/OBS CONSULT LVL 4, 60 MIN Diagnoses Spontaneous pneumothorax J93.83
[2022-05-10] MEDS ORDERED: LIDOCAINE 2% LOCAL 50 ML VIAL ONE (15:33)
[2022-05-10] MEDS ORDERED: HYDROmorphone INJ 0.5 MG/0.5 ML SYR IV STA (15:37)
[2022-05-10] MEDS ORDERED: HYDROmorphone INJ 0.5 MG/0.5 ML SYR ONE (15:38)
--- NOTE | 2022-05-10 16:12 | Procedure Note ---
Procedure Note Date of Service May 10, 2022 Note Procedure: Right-sided 8 Tajik pigtail pneumothorax catheter. 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 [place] Anesthesia: 1% lidocaine without epinephrine topical: Total 10 mL, 0.5 mg Dilaudid IV Estimated blood loss: Less than 5 mL Consent risks and benefits were discussed with the patient. He agreed to proceed. Procedure: The previous noted Thora vent was removed at full expiration and an occlusive dressing applied. The patient was then placed in a semirecumbent position. The right infraclavicular region was cleaned with chlorhexidine and a sterile field established. Landmarks were identified. Using lidocaine, I was able to anesthetize the skin in the midclavicular line approximately 2 cm inferior to the clavicle. The subcutaneous and muscles were anesthetized down to the pleural space and I was able to aspirate air with the finder needle. At that point time, a scalpel was used to make a 0.5 cm skin virgen. An 18-gauge needle was then passed on the same tract that had been previously anesthetized down to the pleural space until I was able to aspirate air. The syringe was disconnected and a wire passed through the 18-gauge needle. The needle was removed leaving the wire in place. An 8 Tajik dilator was passed over the wire into the pleural space without difficulty. The dilator was removed and the pigtail catheter was then advanced over the wire into the pleural space. The wire was removed leaving the catheter in place. A three-way stopcock was attached and it was attached to the Shivani system with significant bubbling noted. The catheter was secured using a skater dressing system and placed to 20 cm of wall suction. Post procedure chest x-ray is pending. Coding CPT Codes Pulmonary/Thoracic - Pulmonary and Thoracic: 12810 Pleural drainage w/o imaging ([id number]) [facility] [place]) Pulmonary/Thoracic Procedure 1: Pulmonary and Thoracic: 16298 Pleural drainage w/o imaging
--- NOTE | 2022-05-10 16:18 | CT Scan Report ---
CT chest diagnostic wo con CLINICAL HISTORY: ptx TECHNIQUE: Multidetector row helical CT of the chest was performed. Coronal and sagittal reformations were obtained. Automated dose lowering techniques and/or adjustment according to patient size were u tilized for this exam. CT DOSE: 223.47 mGy.cm Comparison: Comparison is made to chest radiograph 05/09/2022 FINDINGS: Lungs and pleura: There is a small to moderate left pneumothorax with atelectasis at the lung base. T here is mild right mediastinal shift. Heart and pericardium: Heart size is normal. No pericardial effusion. Vessels: Unremarkable. Mediastinum and gabby: Unremarkable. Chest wall and lower neck: Unremarkable. Abdomen: Unremarkable. Bones: Unremarkable. IMPRESSION: Small to moderate left pneumothorax with associated rightward mediastinal shift. ACT 112: Negative or not required by law. Electronically signed by: Miko Logan M.D. 05/10/2022 4:15 PM
[2022-05-10] MEDS ORDERED: MoRPHine SULFATE 2 MG/ML CARP ONE (16:55)
[2022-05-10] MEDS ORDERED: KETOROLAC 30 MG/ML VIAL IV PRN (17:10)
--- NOTE | 2022-05-10 17:20 | XRay Report ---
XR chest 1V portable CLINICAL HISTORY: chest tube TECHNIQUE: Single frontal radiograph of the chest was obtained. Comparison: Comparison is made to chest radiograph 05/10/2022 FINDINGS: Left pleural pigtail catheter is seen. The cardiomediastinal silhouette is normal. The lungs are deya ar. A left apical pneumothorax is stable to mildly decreased from prior exam. IMPRESSION: Pigtail catheter is in satisfactory position in the left hemithorax. The left pneumothorax is stable to slightly decreased from prior exam. ACT 112: Negative or not required by law. Electronically signed by: Miko Logan M.D. 05/10/2022 5:18 PM
--- NOTE | 2022-05-11 07:04 | Hospitalist Progress Note ---
Date of Service May 11, 2022 Assessment & Plan (1) Spontaneous pneumothorax: Plan: Patient is a 21 yo male with PMHx of COVID-19 infection in March 2022 and latent TB (completed treatment in [facility] in Dec-Jan 2020) admitted at [facility] on 05/09/22 due to spontaneous pneumothorax. Spontaneous pneumothorax - Thora-vent placed in the ER prior to admission - Consulted pulmonology - Chest tube placed as thora-vent was in chest wall, not pleural space - Tube placed to 10cm of wall suction; Use Percocet & Toradol for pain control; F/U CXR at 9AM; keep on suction today and pursue clamping trial in the a.m. - Should have PFTs in 6-8 weeks to exclude underlying asthma; no flying, scuba diving or participate in any activities resulting in significant changes in barometric pressure for the next 4 weeks -If recurrence of pneumothorax or second episode, referral to thoracic surgery for consideration of pleurodesis might be appropriate - Continue supplemental O2 PRN -- no requirement at this time - Tylenol PO prn for pain control -- has not required any doses since admission - No signs of infectious process at this time FENGI: Regular diet Code status: Full code Dispo: Admit to tele Admission and Anticipated Discharge Date Admission Date: May 09, 2022 Supervising Physician Co-Signing Physician Notes Resident Physician Supervision Note: I independently interviewed and examined the patient and verified the monsivais history and physical, reviewed labs and image studies and agree with resident findings and care plan. Subjective No acute events overnight. Did have complaint of discomfort/pain from new chest tube. CXR this AM showing increase in pneumothorax size. He is resting comfortably upon my evaluation but does report some pain related to his new chest tube. Review of Systems Review of Systems: per HPI Physical Exam Physical Exam: GENERAL: A&Ox3. NAD. CHEST/LUNGS: CTAB A/P. No crackles, wheezes, rales, rhonchi. HEART: RRR. No m/g/r. No carotid bruits. SKIN: Warm and dry. No rashes or lesions. PSYCHIATRIC: Euthymic affect, no SI, no pressured speech, no hallucinations Results & Data Results & Data ([facility]) Vital Signs (Past 12 Hours) Vital Signs Temp Pulse Pulse Resp BP Pulse Ox Pulse Ox 05/11/22 06:14 05/11/22 06:07 70 05/10/22 23:02 98 05/11/22 03:00 36.7 C 55 L 16 124/72 98 05/10/22 23:00 36.8 C 57 L 16 139/83 98 O2 Del Method O2 Del Method O2 Flow Rate 05/11/22 06:14 Room Air 05/11/22 06:07 05/10/22 23:02 Room Air 0 05/11/22 03:00 Room Air 05/10/22 23:00 Room Air Resident Activity Tracking Resident Involvement: Resident Care Provided Care Provided: Adult Hospital Medicine
[2022-05-11 07:08] LABS: Basophils # (auto) 0.02 K/uL (0-0.2); Basophils % (auto) 0.4 %; Eosinophils # (auto) 0.28 K/uL (0-0.50); Hematocrit (blood only) 43.9 % (40.1-51.0); Lymphocytes % (auto) 38.4 %; Mean Corpuscular Hemoglobin 28.5 pg (25.0-34.0); Mean Corpuscular Hgb Conc 34.2 g/dL (32.0-36.0); Mean Corpuscular Volume 83.3 fL (80.0-100.0); Mean Platelet Volume 9.9 fL (9.4-12.4); Monocytes % (auto) 6.4 %; Neutrophils # (auto) 2.29 K/uL (1.4-6.5); Neutrophils % (auto) 48.8 %; Platelet Count 188 K/uL (130-400); RDW Coefficient of Variation 13.1 % (11.5-14.5); RDW Standard Deviation 39.6 fL (36.4-46.3); Red Blood Count 5.27 M/uL (4.63-6.08); White Blood Count 4.69 K/ul (4.8-10.8)
--- NOTE | 2022-05-11 07:08 | XRay Report ---
SINGLE VIEW CHEST CLINICAL HISTORY: Pneumothorax. FINDINGS: An AP, portable, upright chest radiograph is compared to studies dated 05/10/2022. The cardi omediastinal silhouette is unremarkable. A left-sided chest tube is unchanged in position. There is a moderate to large left pneumothorax. This has significantly increased in size from yesterday, with a pproximately 6 cm of apical pleural separation. This extends the left lung base. The trachea is midli ne. The lungs otherwise clear. The bony thorax is grossly intact. IMPRESSION: A left-sided chest tube is unchanged in position. A moderate to large left pneumothorax h as significantly increased in size from yesterday. ACT 112: Negative or not required by law. Electronically signed by: Krish Montano M.D. 05/11/2022 7:06 AM
[2022-05-11 07:32] LABS: BUN Creatinine Ratio 18.6 (10-20); Calcium 9.1 mg/dl (8.5-10.1); Creatinine Clr Calc Pharmacy 114.5 ml/min; Est GFR (African American) 128.8 ml/min; Est GFR (Non-African American) 111.1 ml/min; Potassium 3.9 mmol/L (3.5-5.1)
--- NOTE | 2022-05-11 07:45 | Pulmonology Progress Note ---
Date of Service May 11, 2022 Assessment & Plan (1) Spontaneous pneumothorax: Plan Impression: 21-year-old male without significant pulmonary history presents now with spontaneous pneumothorax. Initially had a Thora vent placed in the ER but this migrated outside the chest wall. He is status postplacement of an 8 Taiwanese pigtail catheter but had some pain in the tube was placed to waterseal but the pneumothorax appears to have recurred. Recommendations: 1. Pneumothorax: The tube was placed back to 10 cm of wall suction. We will use Percocet Toradol for pain control. Follow-up chest x-ray at 9:00 to ensure that the lung is. Would keep on suction today and pursue clamping trial in the a.m. 2. Patient should have pulmonary function testing performed in about 6 to 8 weeks to exclude underlying asthma. He should also be advised not to fly scuba dive or participate in any activities resulting in significant changes in barometric pressure for the next 4 weeks. 3. If the patient should have recurrence of the pneumothorax or a second episode, referral to thoracic surgery for consideration of pleurodesis might be appropriate. 4. Pain control with Toradol and as needed Percocet. The above recommendations and plan were discussed with the patient as well as wi th his bedside clinical nurse. Questions were answered to the best my ability. He expressed understanding and is in agreement with plan as outlined. Admission and Anticipated Discharge Date Admission Date: May 09, 2022 Subjective Patient seen and examined. EMR reviewed. The patient complained of significant discomfort yesterday after the new pigtail catheter was placed. We placed the tube to waterseal overnight. His chest x- ray this morning demonstrated reaccumulation of the pneumothorax. He is pain- free and not having any respiratory difficulties currently. Review of Systems Review of Systems: All systems reviewed & are unremarkable except as noted in Subjective Physical Exam Constitutional: WD/WN, vitals as above Neck: trachea midline, no thyromegaly Respiratory: normal respiratory effort, lungs clear to auscultation Cardiovascular: RRR, no murmur, no edema Gastrointestinal (Abdomen): normal bowel sounds, soft, nontender, no hepatosplenomegaly Musculoskeletal: Extremities: extremities normal to inspection Skin: no rashes, warm and dry Lymphatic: no cervical lymphadenopathy Results & Data Results & Data ([facility]) Vital Signs (Past 12 Hours) Vital Signs Temp Pulse Pulse Resp BP Pulse Ox Pulse Ox 05/11/22 06:14 05/11/22 06:07 70 05/10/22 23:02 98 05/11/22 03:00 36.7 C 55 L 16 124/72 98 05/10/22 23:00 36.8 C 57 L 16 139/83 98 O2 Del Method O2 Del Method O2 Flow Rate 05/11/22 06:14 Room Air 05/11/22 06:07 05/10/22 23:02 Room Air 0 05/11/22 03:00 Room Air 05/10/22 23:00 Room Air Laboratory Results 05/11/22 06:53 05/11/22 06:53 Diagnostic Findings CTA chest from yesterday reviewed. The Thora vent was outside the pleural space. There did not appear to be significant structural lung disease. The pneumothorax was recurred. Follow-up chest x-ray status post placement of an 8 Taiwanese pigtail catheter demonstrated trace apical pneumothorax residual with the tube in good position. X-ray this morning demonstrated reaccumulation of the pneumothorax. PG Care Time/CCT Total # of Minutes Spent Total Time Spent with Patient: Total time spent is greater than 50% in coordination of care (as documented) at patient's floor/unit and/or counseling patient: Coding Level of Care Code 11818 SUB INP/OBS CARE 2/35MIN Diagnoses Spontaneous pneumothorax J93.83
[2022-05-11] MEDS: oxyCODONE/ACETAMINOPHEN 5mg/325mg TAB PO PRN ×3 (07:58→22:06)
--- NOTE | 2022-05-11 09:15 | XRay Report ---
SINGLE VIEW CHEST CLINICAL HISTORY: Pneumothorax. FINDINGS: An AP, portable, upright chest radiograph is compared to study performed earlier the same d ay 05/11/2022. The cardiomediastinal silhouette is unremarkable. A left-sided chest tube is unchanged in position. There is a moderate left pneumothorax. This has significantly decreased in size from tod ay's earlier examination with 2.4 cm of apical pleural separation. The lungs are otherwise clear. The bony thorax is grossly intact. IMPRESSION: A left-sided chest tube is unchanged in position. A moderate left pneumothorax has decrea sed in size from today's earlier examination. ACT 112: Negative or not required by law. Electronically signed by: Krish Montano M.D. 05/11/2022 9:13 AM
--- NOTE | 2022-05-11 21:10 | Electrocardiogram Report ---
Test Reason : Blood Pressure : / mmHG Vent. Rate : 064 BPM Atrial Rate : 064 BPM P-R Int : 182 ms QRS Dur : 080 ms QT Int : 388 ms P-R-T Axes : 000 225 234 degrees QTc Int : 400 ms Poor data quality, interpretation may be adversely affected Probable lead reversal No previous ECGs available Confirmed by Johnson Ware ([id number]) on 05/11/2022 9:10:05 PM Referred By: REFERRED SELF Confirmed By:Johnson Ware
[2022-05-12] MEDS: oxyCODONE/ACETAMINOPHEN 5mg/325mg TAB PO PRN ×2 (01:30→22:56)
--- NOTE | 2022-05-12 07:10 | XRay Report ---
XR chest 1V portable HISTORY: 21 years-old Male pneumothorax follow-up study in a patient with left-sided pneumothorax COMPARISON: Chest radiograph May 11, 2022 TECHNIQUE: AP view of the chest FINDINGS: Cardiomediastinal and hilar silhouettes are within normal limits. No pleural effusion, airspace conso lidation or overt pulmonary edema. A left-sided pleural catheter is noted with distal tip adjacent to lateral left midlung. A left-sided pneumothorax is again noted which appears unchanged with pleural separation of 2.4 cm. Bones appear grossly intact. IMPRESSION: Stable positioning of the left-sided chest tube with unchanged left-sided pneumothorax. ACT 112: Negative or not required by law. The above report was generated using voice recognition software. It may contain grammatical, syntax o r spelling errors. Electronically signed by: Jarocho Christensen M.D. 05/12/2022 7:08 AM
[2022-05-12 09:13] LABS: Basophils # (auto) 0.04 K/uL (0-0.2); Basophils % (auto) 0.8 %; Eosinophils # (auto) 0.42 K/uL (0-0.50); Eosinophils % (auto) 8.6 %; Hematocrit (blood only) 41.7 % (40.1-51.0); Hemoglobin 14.4 g/dl (14.0-18.0); Immature Granulocytes # (auto) 0.01 K/uL (0.00-0.02); Immature Granulocytes % (auto) 0.2 %; Lymphocytes # (auto) 2.04 K/uL (1.2-3.4); Lymphocytes % (auto) 41.5 %; Mean Corpuscular Hemoglobin 28.6 pg (25.0-34.0); Mean Corpuscular Hgb Conc 34.5 g/dL (32.0-36.0); Mean Corpuscular Volume 82.9 fL (80.0-100.0); Monocytes # (auto) 0.37 K/uL (0.24-0.82); Monocytes % (auto) 7.5 %; Neutrophils # (auto) 2.03 K/uL (1.4-6.5); Neutrophils % (auto) 41.4 %; Platelet Count 180 K/uL (130-400); RDW Standard Deviation 39.4 fL (36.4-46.3); Red Blood Count 5.03 M/uL (4.63-6.08); White Blood Count 4.91 K/ul (4.8-10.8)
--- NOTE | 2022-05-12 09:15 | Hospitalist Progress Note ---
Date of Service May 12, 2022 Assessment & Plan (1) Spontaneous pneumothorax: Plan: Patient is a 21 yo male with PMHx of COVID-19 infection in March 2022 and latent TB (completed treatment in [place] in Dec-Jan 2020) admitted at [facility] on 05/09/22 due to spontaneous pneumothorax. Spontaneous pneumothorax - Thora-vent placed in the ER prior to admission - Consulted pulmonology - Chest tube placed on 05/10 as ER thora-vent was in chest wall, not pleural space - Tube placed to 10cm of wall suction - Tube flushed today with intermittent air leak, suction increased to -20 cm H2O - Recommend PFTs in 6-8 weeks to exclude underlying asthma - Pneumothorax recurrence may indicate referral to thoracic surgery for consideration of pleurodesis - Will repeat CXR in AM. If pneumothorax persistent, will attempt transfer to tertiary care for VATS pleurodesis - Continue supplemental O2 PRN -- no requirement at this time - Tylenol, Percocet, Toradol PRN for pain control - No signs of infectious process at this time FENGI: Regular diet Code status: Full code Dispo: Telemetry Admission and Anticipated Discharge Date Admission Date: May 09, 2022 Supervising Physician Co-Signing Physician Notes I personally examined the patient and verified all monsivais points of history and exam, discussed case, and agree with decision making with Dr Bhat. Generally feeling okay. Occasionally has some discomfort at chest tube or some discomfort from chest tube with breathing. Otherwise no problems. Vitals noted, in general he is awake and alert pleasant no distress. HEENT normocephalic atraumatic mucous membranes moist. Breathing unlabored no accessory muscle use good effort. Skin shows no rashes no pallor or icterus. Neuro without focal deficits. Spontaneous pneumothoraxcontinue chest tube, unfortunately may need VATS. Otherwise as above Subjective No acute events overnight. On evaluation this AM, he reports some mild pain from chest tube but no dyspnea or difficulty eating. No new complaints. Review of Systems Review of Systems: Per subjective Physical Exam Physical Exam: GENERAL: A&Ox3. NAD. CHEST/LUNGS: CTAB, mildly diminished in L upper lung field. No crackles, wheezes, rales, rhonchi. HEART: RRR. No m/g/r. No carotid bruits. SKIN: Warm and dry. No rashes or lesions. Mildly tender to palpation over chest tube insertion site Results & Data Results & Data ([facility]) Vital Signs (Past 12 Hours) Vital Signs Temp Pulse Pulse Resp BP Pulse Ox Pulse Ox 05/12/22 07:25 36.6 C 66 18 118/74 97 05/12/22 05:25 36.6 C 58 L 18 120/80 98 05/12/22 01:18 72 05/11/22 23:00 100 05/11/22 23:05 36.9 C 62 18 125/75 99 O2 Del Method O2 Del Method O2 Flow Rate 05/12/22 07:25 Room Air 05/12/22 05:25 Room Air 05/12/22 01:18 05/11/22 23:00 Room Air 0 05/11/22 23:05 Room Air Resident Activity Tracking Resident Involvement: Resident Care Provided Care Provided: Adult Hospital Medicine
[2022-05-12 09:36] LABS: BUN Creatinine Ratio 15.8 (10-20); Calcium 8.9 mg/dl (8.5-10.1); Creatinine Clr Calc Pharmacy 117.6 ml/min; Est GFR (African American) 132.1 ml/min; Potassium 4.1 mmol/L (3.5-5.1)
--- NOTE | 2022-05-12 12:59 | Pulmonology Progress Note ---
Date of Service May 12, 2022 Assessment & Plan (1) Spontaneous pneumothorax: Plan Chest tube flushed at bedside with intermittent air leak noted afterwards. Suction increased to -20 cm from -10 cm H2O. We will repeat a chest x-ray in 1 hour. Pain control per primary team May require transfer to a tertiary center for definitive VATS pleurodesis if unable to resolve with chest tube drainage. Discussed with patient and bedside RN. Admission and Anticipated Discharge Date Admission Date: May 09, 2022 Subjective Patient seen examined. Complaining of some mild numbness and chest pain the left side at this time chest tube insertion site. I flushed chest tube with 10 mL of saline and there was an intermittent air leak identified. Review of Systems Review of Systems: All systems reviewed & are unremarkable except as noted in HPI & below Physical Exam Constitutional: WD/WN, vitals as above Neck: trachea midline, no thyromegaly Respiratory: normal respiratory effort, lungs clear to auscultation Cardiovascular: RRR, no murmur, no edema Gastrointestinal (Abdomen): normal bowel sounds, soft, nontender, no hepatosplenomegaly Musculoskeletal: Extremities: extremities normal to inspection Skin: no rashes, warm and dry Lymphatic: no cervical lymphadenopathy Results & Data Results & Data ([facility]) Vital Signs (Past 12 Hours) Vital Signs Temp Pulse Pulse Resp BP Pulse Ox O2 Del Method 05/12/22 11:25 36.6 C 66 18 135/81 99 Room Air 05/12/22 07:50 Room Air 05/12/22 07:25 36.6 C 66 18 118/74 97 Room Air 05/12/22 05:25 36.6 C 58 L 18 120/80 98 Room Air 05/12/22 01:18 72 PG Care Time/CCT Total # of Minutes Spent Total Time Spent with Patient: Total time spent is greater than 50% in coordination of care (as documented) at patient's floor/unit and/or counseling patient: Coding Level of Care Code 49669 SUB INP/OBS CARE 2/35MIN Diagnoses Spontaneous pneumothorax J93.83
--- NOTE | 2022-05-12 14:37 | XRay Report ---
XR chest 1V portable CLINICAL HISTORY: follow up ptx TECHNIQUE: Single frontal radiograph of the chest was obtained. Comparison: Comparison is made to chest radiograph 05/12/2022 FINDINGS: Right pigtail catheter is seen. The cardiomediastinal silhouette is normal. The lungs are clear. Inte rval mild enlargement of the pneumothorax which now measures 31 mm compared to 24 mm on prior exam. IMPRESSION: Interval slight enlargement of pneumothorax. The right chest tube is in unchanged position. ACT 112: Negative or not required by law. Electronically signed by: iMko Logan M.D. 05/12/2022 2:35 PM
--- NOTE | 2022-05-12 18:54 | Billing Data ---
Date of Service May 12, 2022 Coding Level of Care Code 15401 SUB INP/OBS CARE
--- NOTE | 2022-05-13 07:11 | XRay Report ---
XR chest 1V portable HISTORY: 21 years-old Male pneumothorax follow-up study in a patient with a left-sided pneumothorax COMPARISON: 05/12/2022 TECHNIQUE: AP view of the chest FINDINGS: Cardiomediastinal and hilar silhouettes are within normal limits. No pleural effusion, airspace conso lidation or overt pulmonary edema. A left-sided pleural catheter is noted with distal tip adjacent to lateral left midlung. A left-sided pneumothorax is again noted which with pleural separation of appr oximately 3 cm, stable from prior. Bones appear grossly intact. IMPRESSION: Stable positioning of the left-sided chest tube with unchanged left-sided pneumothorax. ACT 112: Negative or not required by law. The above report was generated using voice recognition software. It may contain grammatical, syntax o r spelling errors. Electronically signed by: Jarocho Christensen M.D. 05/13/2022 7:10 AM
--- NOTE | 2022-05-13 10:05 | Discharge Summary ---
Date of Service May 13, 2022 Admission HPI Per Admitting Provider Patient is a 21 yo male with PMHx of COVID-19 infection in March 2022 and latent TB (completed treatment in [facility] in Dec-Jan 2020) admitted at [facility] on 05/09/22 due to spontaneous pneumothorax. Patient states that on Thursday afternoon, 3 days ago, after walking back to his room from class, he was sitting in a chair and had an acute onset of "left lung pain." Patient describes this pain as "feeling like the left lung was constricting and moving around." He subsequently had some SOB and CAGLE. Patient notes that this sensation was reminiscent of a pain he had about 1 year ago, but at that time he did not seek medical evaluation. Due to the recurrence, he opted to seek medical evaluation for this episode. He first went to [facility] and they subsequently sent him here due to a pneumothorax on CXR. Patient states that aside from COVID 1 month ago, he has had no other recent URI symptoms including no cough, congestion, rhinorrhea, or fever. He denies any recent trauma including no MVC, physical assault, or s ports-related blunt force trauma to the chest wall. No recent travel or flight. 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 He denies abdominal pain, nausea, vomiting, headache, lightheadedness, dizziness, paresthesia, or any other symptoms. In the ER, CXR confirmed a "moderate size left-sided pneumothorax with pleural separation at the left lung apex of 5.8 cm and lateral plelural separation of approximately 3 cm." A left-sided chest tube was placed by ER physician. CBC and CMP are unremarkable. COVID negative. Admission Exam Per Admitting Provider GENERAL: No acute distress. Well developed and well nourished. Vital signs reviewed as above. EYES: EOMI. Anicteric sclerae. HENT: Moist mucous membranes. Oxymask in place. RESPIRATORY: Right lung clear to auscultation in all lung leyva. Left lung with absent breath sounds at apex. Otherwise CTA w/o wheezing or crackles. CARDIOVASCULAR: Regular rate and rhythm. No murmurs. No JVD. CHEST WALL: Thora vent in place, left lateral chest wall. ABDOMEN: Soft, non-tender and non-distended. Normal bowel sounds. EXTREMITIES: No edema. Non-tender. 5/5 strength in BUE and BLE. SKIN: Warm, dry. NEUROLOGIC: A/O x3. Normal speech. No focal neurological deficits. PSYCHIATRIC: Cooperative. Appropriate mood and affect. Principal Diagnosis Spontaneous pneumothorax Discharge Exam GENERAL: A&Ox3. NAD. CHEST/LUNGS: CTAB, mildly diminished in L upper lung field. No crackles, wheezes, rales, rhonchi. HEART: RRR. No m/g/r. No carotid bruits. SKIN: Warm and dry. No rashes or lesions. Mildly tender to palpation over chest tube insertion site Discharge Data Allergies Allergy/AdvReac Type Severity Reaction Status Date / Time No Known Allergies Allergy Verified 05/09/22 21:51 Consultations 05/09/22 19:54 ED Decision to Admit Stat 05/10/22 12:02 Consult Pulmonology Routine Ordered Studies 05/10/22 12:46 CT chest diagnostic wo con Urgent Hospital Course Plan Patient is a 21 yo male with PMHx of COVID-19 infection in March 2022 and latent TB (completed treatment in [facility] in Dec-Jan 2020) admitted at [facility] on 05/09/22 due to spontaneous pneumothorax. Spontaneous pneumothorax - Thora-vent placed in the ER prior to admission - Consulted pulmonology - Chest tube placed on 05/10 as ER thora-vent was in chest wall, not pleural space - Tube placed to 10cm of wall suction - Tube flushed 05/12 with intermittent air leak, suction increased to -20 cm H2O - Recommend PFTs in 6-8 weeks to exclude underlying asthma - PTX unchanged over past 2+ days- transferred to [facility] for VATS pleurodesis - Continue supplemental O2 PRN -- no requirement at time of discharge - Tylenol, Percocet, Toradol PRN for pain control - No signs of infectious process at this time FENGI: Regular diet Code status: Full code Dispo: Telemetry Total Time Total Time Spent Total Time Spent (In Minutes): 30 Discharge Plan Discharge Items Patient Disposition: Transfer Acute Care Hospital Reason For Visit: SPONTANEOUS PNEUMOTHORAX Discharge Diagnosis: Spontaneous pneumothorax Activity: Per Instructions section Non-emergency contact: Primary Care Provider and Care Support Representative Call non-emergency contact if: you have any medication questions, your symptoms worsen, your pain is worsening and you have a fever Follow-up/Referrals: [place] [Primary Care Provider] - Diet: Regular Addtl Attending Provider Instructions: Patient is a 21 yo male with PMHx of COVID-19 infection in March 2022 and latent TB (completed treatment in [place] in Dec-Jan 2020) admitted at [facility] on 05/09/22 due to spontaneous pneumothorax. Spontaneous pneumothorax - Thora-vent placed in the ER prior to admission - Consulted pulmonology - Chest tube placed on 05/10 as ER thora-vent was in chest wall, not pleural space - Tube placed to 10cm of wall suction - Tube flushed 05/12 with intermittent air leak, suction increased to -20 cm H2O - Recommend PFTs in 6-8 weeks to exclude underlying asthma - PTX unchanged over past 2+ days- transferred to [facility] for VATS pleurodesis - Continue supplemental O2 PRN -- no requirement at time of discharge - Tylenol, Percocet, Toradol PRN for pain control - No signs of infectious process at this time FENGI: Regular diet Code status: Full code Dispo: Telemetry Pending Studies at Discharge: No Stand-Alone Forms: [facility] Skilled Items Patient informed of condition?: Yes DNR: No Discharge Level of Care: Other Communicable Disease: No Discharge Prognosis: Stable Lines: None Urinary Catheter: No Medications and DC Order Prescriptions: Continued acetaminophen [Tylenol] 325 mg Tablet 650 mg PO DIRECTED PRN (Reason: PAIN/FEVER) ibuprofen [Advil] 200 mg Tablet 200 mg PO DIRECTED PRN (Reason: PAIN/FEVER) Admission Data Admit Date/Time: 05/09/22 21:31 Attending Provider: Alexx Nelson Admit Provider: Gretta Munroe Primary Care Provider: [facility] Other Providers: Eli Oswald ; Drew Dallas ; Marcie Hogue Resident Activity Tracking Resident Involvement: Resident Care Provided Care Provided: Adult Hospital Medicine
--- NOTE | 2022-05-13 10:06 | Pulmonology Progress Note ---
Date of Service May 13, 2022 Assessment & Plan (1) Spontaneous pneumothorax: Plan Persistent left apical pneumothorax with left pigtail catheter in place and suction set to -20 cm H2O. Intermittent air leak noted with cough or deep breathing. He is accepted for transfer to [facility] for thoracic surgery evaluation. Early in the week waterseal trials were attempted, but the patient's pneumothorax got bigger. Discussed with patient and bedside RN. Admission and Anticipated Discharge Date Admission Date: May 09, 2022 Subjective Patient seen and examined. Pain better controlled. Anxious upon transfer. Pneumothorax persist on chest x-ray. Review of Systems Review of Systems: All systems reviewed & are unremarkable except as noted in HPI & below Physical Exam Constitutional: WD/WN, vitals as above Neck: trachea midline, no thyromegaly Respiratory: normal respiratory effort, lungs clear to auscultation Cardiovascular: RRR, no murmur, no edema Gastrointestinal (Abdomen): normal bowel sounds, soft, nontender, no hepatosplenomegaly Musculoskeletal: Extremities: extremities normal to inspection Skin: no rashes, warm and dry Lymphatic: no cervical lymphadenopathy Results & Data Results & Data ([facility]) Vital Signs (Past 12 Hours) Vital Signs Temp Pulse Resp BP Pulse Ox O2 Del Method 05/13/22 08:00 Room Air 05/13/22 03:08 36.6 C 52 L 18 126/72 100 Room Air 05/12/22 23:13 36.8 C 73 18 132/81 99 Room Air PG Care Time/CCT Total # of Minutes Spent Total Time Spent with Patient: Total time spent is greater than 50% in coordination of care (as documented) at patient's floor/unit and/or counseling patient: Coding Level of Care Code 49541 SUB INP/OBS CARE 1/25MIN Diagnoses Spontaneous pneumothorax J93.83
--- NOTE | 2022-05-13 10:27 | Medical Student Progress Note ---
Date of Service May 13, 2022 Assessment & Plan (1) Spontaneous pneumothorax: Plan: Patient is a 21 yo male with PMHx of COVID-19 infection in March 2022 and completed treatment for latent TB in [facility] in Jan 2020 who was admitted at [facility] on 05/09/22 due to spontaneous pneumothorax. Spontaneous pneumothorax - Thora-vent placed in the ER prior to admission - Consulted pulmonology - Chest tube placed on 05/10 as ER thora-vent was in chest wall, not pleural space - Tube placed to 10cm of wall suction - Tube flushed 05/12 with intermittent air leak, suction increased to -20 cm H2O - Recommend PFTs in 6-8 weeks to exclude underlying asthma - PTX unchanged over past 2+ days. Recommended C transfer for VATS pleurodesis. Patient would like another day to think about this option. - Continue supplemental O2 PRN -- no requirement at this time - Tylenol, Percocet, Toradol PRN for pain control - No signs of infectious process at this time FENGI: Regular diet Code status: Full code Dispo: Transition to [facility] tele Admission and Anticipated Discharge Date Admission Date: May 09, 2022 Subjective Patient is a 21 yo male with PMHx of COVID-19 infection in March 2022 and completed treatment for latent TB in [facility] in Jan 2020 who was admitted at [facility] on 05/09/22 due to spontaneous pneumothorax. Patient arrived to [facility] after acute onset left sided chest pain while sitting in a chair with associated shortness of breath at rest and with exertion. Initial CXR confimred moderated sized left-sided pneumothorax with pleural separation at the left lung apex of 5.8 cm and lateral pleural separation of 3 cm. A left sided chest tube was placed in the ER. Serial CXR since then have showed a pneumothorax stable in size. Patient has been hemodynamically stable since arrival. Today, patient has no acute concerns and no new symptoms. Patient endorses no shortness of breast or chest pain at this time. Patient expresses understanding of his overall hospital course and is somewhat anxious about the possibility of surgery. Review of Systems Respiratory: + pain on inspiration (mild pain around chest tube with deep inspiration); no dyspnea Cardiovascular: no chest pain Gastrointestinal: no abdominal pain and no constipation Genitourinary: no dysuria Neurologic: no tingling and no numbness Psychiatric: Stable mood Physical Exam Respiratory: Right sided lung sounds clear to auscultation anteriorly and posteriorly. Left upper lobe posteriorly and anteriorly significant for diminished breath sounds on auscultation. Left lower lobe breath sounds clear to auscultation. Mildly hyperresonant left upper lobe to percussion. Cardiovascular: Rate/Rhythm: regular rate and regular rhythm Heart Sounds: no click, no gallop, no murmur and no cardiac rub Vessels: no carotid bruit Extremities: no pedal edema Gastrointestinal (Abdomen): normal bowel sounds, soft, nontender, no hepatosplenomegaly Musculoskeletal: Rib tenderness to palpation around chest tube insertion site. Skin: Chest tube insertion site is intact and clean. Neurologic: patellar DTR's 1+ bilaterally, sensation intact Results & Data ([facility]) Vital Signs (Past 12 Hours) Vital Signs Temp Pulse Resp BP Pulse Ox O2 Del Method 05/13/22 08:00 Room Air 05/13/22 03:08 36.6 C 52 L 18 126/72 100 Room Air 05/12/22 23:13 36.8 C 73 18 132/81 99 Room Air
--- NOTE | 2022-05-13 12:25 | Hospitalist Progress Note ---
Date of Service May 13, 2022 Assessment & Plan (1) Spontaneous pneumothorax: Plan Patient is a 21 yo male with PMHx of COVID-19 infection in March 2022 and latent TB (completed treatment in [facility] in Dec-Jan 2020) admitted at [facility] on 05/09/22 due to spontaneous pneumothorax. Spontaneous pneumothorax - Thora-vent placed in the ER prior to admission - Consulted pulmonology - Chest tube placed on 05/10 as ER thora-vent was in chest wall, not pleural space - Tube placed to 10cm of wall suction - Tube flushed 05/12 with intermittent air leak, suction increased to -20 cm H2O - Recommend PFTs in 6-8 weeks to exclude underlying asthma - PTX unchanged over past 2+ days- transfer accepted [place] [facility] [place]ATS pleurodesis - However, after discussion with patient and his multiple concerns, we will continue to monitor him with chest tube over the next day and he will reconsider whether he would like to pursue transfer for surgery or not - Continue supplemental O2 PRN -- no requirement at time of discharge - Tylenol, Percocet, Toradol PRN for pain control - No signs of infectious process at this time FENGI: Regular diet Code status: Full code Dispo: Telemetry Admission and Anticipated Discharge Date Admission Date: May 09, 2022 Supervising Physician Co-Signing Physician Notes I personally examined the patient and verified all monsivais points of history and exam, discussed case, and agree with decision making with Dr Bhat. Does not want to be transferred until he has a chance to determine potential cost/etc. Is okay with the fact that he is more likely to be a prolonged hospital stay with chest tube in place because of this. Vitals noted, in general he is awake and alert pleasant no distress. HEENT normocephalic atraumatic mucous membranes moist. Breathing unlabored no accessory muscle use good effort. Skin shows no rashes no pallor or icterus. Neuro without focal deficits. Spontaneous pneumothoraxcontinue chest tube, appears to VATS. Currently he is exploring cost and options. Otherwise as above Subjective No acute events overnight. Denies any active dyspnea or chest pain currently. He does feel better today compared to day prior. He is concerned about the financial burden of potential surgery and is interested in a few more days of treatment with just the chest tube. He states with the lack of family support in the area, he would like to watch his symptoms here in the hospital for another few days and reconsider if he would like the surgery or not. He states he may want to receive surgery in his homeland of [facility] and would like to know more about the costs of his potential treatment pathways. Review of Systems Review of Systems: Per subjective Physical Exam Physical Exam: GENERAL: A&Ox3. NAD. CHEST/LUNGS: CTAB. No crackles, wheezes, rales, rhonchi. HEART: RRR. No m/g/r. No carotid bruits. SKIN: Warm and dry. No rashes or lesions. Mildly tender to palpation over chest tube insertion site Results & Data Results & Data ([facility]) Vital Signs (Past 12 Hours) Vital Signs Temp Pulse Resp BP Pulse Ox O2 Del Method 05/13/22 08:00 Room Air 05/13/22 03:08 36.6 C 52 L 18 126/72 100 Room Air Resident Activity Tracking Resident Involvement: Resident Care Provided Care Provided: Adult Hospital Medicine
--- NOTE | 2022-05-13 18:47 | Billing Data ---
Date of Service May 13, 2022 Coding Level of Care Code 80004 SUB INP/OBS CARE
[2022-05-13] MEDS: oxyCODONE/ACETAMINOPHEN 5mg/325mg TAB PO PRN (21:20)
--- NOTE | 2022-05-14 08:02 | XRay Report ---
XR chest 1V portable HISTORY: 21 years-old Male pneumothorax follow-up study in a patient with left-sided pneumothorax COMPARISON: 05/13/2022 TECHNIQUE: AP view of the chest FINDINGS: Cardiomediastinal and hilar silhouettes are within normal limits. No pleural effusion, airspace conso lidation or overt pulmonary edema. A left-sided pleural catheter is noted with distal tip adjacent to lateral left midlung. A left-sided pneumothorax is again noted which with pleural separation of appr oximately 6.3 cm, previously 3 cm. Bones appear grossly intact. IMPRESSION: Stable positioning of the left-sided chest tube with increased size of the left pneumotho rax. ACT 112: Negative or not required by law. The above report was generated using voice recognition software. It may contain grammatical, syntax o r spelling errors. Electronically signed by: Jarocho Christensen M.D. 05/14/2022 8:00 AM
--- NOTE | 2022-05-14 08:49 | Pulmonology Progress Note ---
Date of Service May 14, 2022 Assessment & Plan (1) Spontaneous pneumothorax: Plan Attending: Dr. Ruvalcaba Impression: 21-year-old [place]ian male with spontaneous pneumothorax. Was admitted and a left apical pigtail catheter was placed. Pneumothorax improved with suction but patient had failed attempts at waterseal. Placed on waterseal last night and patient now has recurrent pneumothorax of 61 mm which is larger than on admission. Recommendations: 1. Spontaneous pneumothorax: * Persistent left apical pneumothorax with left pigtail catheter in place and suction set to waterseal. * Repeat chest x-ray this morning with six 1 mm separation of the apex representing recurrent pneumothorax * Grade 2 air leak. * Patient was accepted for transfer to [facility] for thoracic surgery evaluation yesterday but was hesitant to transfer due to lack of family support and concerned about financial burden. * Patient agrees to discuss with parents this morning. Based on recurrent air leak and pneumothorax while on waterseal, strongly suggest transfer to [place] today for definitive treatment. * Prior waterseal trials failed. Please refer to Dr. Ruvalcaba's addendum for further recommendations. Thank you for including us in the care of this patient. We will continue to follow along with you. Admission and Anticipated Discharge Date Admission Date: May 09, 2022 Subjective Attending: Dr. Ruvalcaba This is a 21-year-old [place]ian male that presented with spontaneous pneumothorax with no trauma or previous pneumothorax history. He received a left Thora vent which was previously to suction. It was placed to waterseal yesterday and overnight pneumothorax expanded to 61 mm. Patient denies any specific pain. He has no shortness of breath. No hypoxia. No cough. He had no precipitating events overnight. There is no interruption with the chest tube to waterseal. Discussion with patient about expanding pneumothorax and recommendation to transfer for thoracic evaluation. He understands and will discuss with his parents in [facility]. Agrees to repeat chest x-ray at noon. Aware that this will be reviewed by Dr. Ruvalcaba and recommendations will be made after chest x- ray is reviewed. No other acute complaints. Review of Systems Review of Systems: A total of 10 systems was reviewed and is negative other than as listed in the HPI Physical Exam Physical Exam: GENERAL : No acute distress EYES: No icterus, gaze conjugate NOSE: No evidence of epistaxis MOUTH: No lesions or candidiasis NECK: Supple LUNGS: CTA B/L, no wheezes, rales or rhonchi. Decreased breath sounds at the left apex HEART: Regular, rate controlled ABDOMEN: Soft, NT, ND, BS Present EXTREMITIES: No LE edema, pedal pulses intact NEURO: A&OX3 Results & Data Results & Data ([facility]) Vital Signs (Past 12 Hours) Vital Signs Temp Pulse Resp BP Pulse Ox O2 Del Method 05/14/22 02:50 37.0 C 63 18 126/72 96 Room Air 05/13/22 23:20 37.0 C 73 16 123/74 99 Room Air Critical Care Results & Data Vital Signs (Past 12 Hours) Vital Signs Temp Pulse Resp BP Pulse Ox O2 Del Method 05/14/22 02:50 37.0 C 63 18 126/72 96 Room Air 05/13/22 23:20 37.0 C 73 16 123/74 99 Room Air Lab & Micro Results (Past 24 Hours) No Data to Display No Data to Display No Data to Display Diagnostic Findings (Past 24 Hours) Chest X-Ray 05/14/22 07:00 XR chest 1V portable HISTORY: 21 years-old Male pneumothorax follow-up study in a patient with left- sided pneumothorax COMPARISON: 05/13/2022 TECHNIQUE: AP view of the chest FINDINGS: Cardiomediastinal and hilar silhouettes are within normal limits. No pleural effusion, airspace consolidation or overt pulmonary edema. A left-sided pleural catheter is noted with distal tip adjacent to lateral left midlung. A left-sided pneumothorax is again noted which with pleural separation of approximately 6.3 cm, previously 3 cm. Bones appear grossly intact. IMPRESSION: Stable positioning of the left-sided chest tube with increased size of the left pneumothorax. ACT 112: Negative or not required by law. The above report was generated using voice recognition software. It may contain grammatical, syntax or spelling errors. Electronically signed by: Jarocho Christensen M.D. 05/14/2022 8:00 AM I & O Totals 24 Hours 05/13/22 05/14/22 05/15/22 06:59 06:59 06:59 Intake Total 1520 / 1520 820 / 820 Output Total 5 / 5 Balance 1500 / 1500 815 / 815 Cumulative 05/09/22 18:05 thru 05/14/22 06:31 Intake Total 3015 Output Total 25 Balance 2990 RT Ventilator Mngmt (Last Documented) Ventilator Ordered Settings Respiratory Rate 18 05/14/22 02:50 Ventilator - PT Measurements Respiratory Rate 18 PG Care Time/CCT Total # of Minutes Spent Total Time Spent with Patient: Total time spent is greater than 50% in coordination of care (as documented) at patient's floor/unit and/or counseling patient: 30 minutes [id number] discussing physiology and reviewing imaging with the patient Coding Level of Care Code 62746 SUB INP/OBS CARE 2/35MIN Diagnoses Spontaneous pneumothorax J93.83 Time Spent (min) 30
--- NOTE | 2022-05-14 12:13 | XRay Report ---
XR chest 1V portable HISTORY: 21 years-old Male Left pneumothorax follow up study in a patient with left-sided pneumothor ax COMPARISON: Chest radiograph of same day at 6:37 AM TECHNIQUE: AP view of the chest FINDINGS: Cardiomediastinal and hilar silhouettes are within normal limits. No pleural effusion, airspace conso lidation or overt pulmonary edema. A left-sided pleural catheter is noted with distal tip adjacent to lateral left midlung. A left-sided pneumothorax is again noted which with pleural separation of appr oximately 2.0 cm, previously 6.3 cm. Bones appear grossly intact. IMPRESSION: Left sided pleural catheter is in place. Small left apical pneumothorax has decreased in size. ACT 112: Negative or not required by law. The above report was generated using voice recognition software. It may contain grammatical, syntax o r spelling errors. Electronically signed by: Jarocho Christensen M.D. 05/14/2022 12:12 PM
--- NOTE | 2022-05-14 15:20 | Hospitalist Progress Note ---
Date of Service May 14, 2022 Assessment & Plan (1) Spontaneous pneumothorax: Plan Patient is a 21 yo male with PMHx of COVID-19 infection in March 2022 and latent TB (completed treatment in [facility] in Dec-Jan 2020) admitted at [facility] on 05/09/22 due to spontaneous pneumothorax. Spontaneous pneumothorax - Thora-vent placed in the ER prior to admission - Consulted pulmonology - Chest tube placed on 05/10 as ER thora-vent was in chest wall, not pleural space - Tube placed to 10cm of wall suction - Tube flushed 05/12 with intermittent air leak, suction increased to -20 cm H2O - Recommend PFTs in 6-8 weeks to exclude underlying asthma - PTX unchanged over past 2+ days- transfer accepted to [facility] for VATS pleurodesis - PTX worsening with pleural separation of 6 cm -> 2 cm as of 05/14 per serial CXRs - Given persistence of his pneumothorax, pt agreeable to transfer. We are waiting for bed availability currently - Continue supplemental O2 PRN -- no requirement at time of discharge - Tylenol, Percocet, Toradol PRN for pain control - No signs of infectious process at this time FENGI: Regular diet Code status: Full code Dispo: Telemetry Admission and Anticipated Discharge Date Admission Date: May 09, 2022 Supervising Physician Co-Signing Physician Notes I personally examined the patient and verified all monsivais points of history and exam, discussed case, and agree with decision making with Dr Bhat. With pneumothorax improving, he is amenable to transfer. His mom is hopefully going to be able to come in from [facility] by 05/16. Discussed overall anticipated course of care, answered all questions to the best of my ability. Fortunately he is not really having much of any pain or respiratory distress, except for with sudden jerking movements such as laughter. Vitals noted, in general he is awake and alert pleasant no distress. HEENT normocephalic atraumatic mucous membranes moist. Breathing unlabored no accessory muscle use good effort. Skin shows no rashes no pallor or icterus. Neuro without focal deficits. Spontaneous pneumothoraxcontinue chest tube, appears to require VATS. Pending transferaccepted, just awaiting a bed Subjective Overnight, pt did experience some worsening shortness of breath and L chest pain. This did resolve later but recurred at time of my evaluation this morning. Pt continues to endorse dyspnea. He does feel worse today compared to prior. He is now more amenable to idea of transfer. Review of Systems Review of Systems: Per subjective Physical Exam Physical Exam: GENERAL: A&Ox3. NAD. CHEST/LUNGS: Decreased breath sounds at L lung apex compared to day prior. No crackles, wheezes, rales, rhonchi. HEART: RRR. No m/g/r. No carotid bruits. SKIN: Warm and dry. No rashes or lesions. Mildly tender to palpation over chest tube insertion site Results & Data Results & Data ([facility]) Vital Signs (Past 12 Hours) Vital Signs Temp Pulse Resp BP Pulse Ox O2 Del Method 05/14/22 12:49 36.4 C L 61 15 127/81 96 Room Air 05/14/22 08:00 Room Air 05/14/22 08:55 36.6 C 66 16 127/74 99 Room Air Resident Activity Tracking Resident Involvement: Resident Care Provided Care Provided: Adult Hospital Medicine
--- NOTE | 2022-05-14 17:29 | Billing Data ---
Date of Service May 14, 2022 Coding Level of Care Code 02116 SUB INP/OBS CARE
[2022-05-14] MEDS: oxyCODONE/ACETAMINOPHEN 5mg/325mg TAB PO PRN (23:26)
--- NOTE | 2022-05-15 10:32 | Hospitalist Progress Note ---
Date of Service May 15, 2022 Assessment & Plan (1) Spontaneous pneumothorax: Plan Patient is a 21 yo male with PMHx of COVID-19 infection in March 2022 and latent TB (completed treatment in [facility] in Dec-Jan 2020) admitted at [facility] on 05/09/22 due to spontaneous pneumothorax. Spontaneous pneumothorax - Thora-vent placed in the ER prior to admission - Consulted pulmonology - Chest tube placed on 05/10 as ER thora-vent was in chest wall, not pleural space - Tube placed to 10cm of wall suction - Tube flushed 05/12 with intermittent air leak, suction increased to -20 cm H2O - Recommend PFTs in 6-8 weeks to exclude underlying asthma - PTX unchanged over past 2+ days- transfer accepted to [facility] for VATS pleurodesis - PTX pleural separation of 2 cm -> 6 cm -> 2 cm as of 05/14 per serial CXRs - Given persistence of his pneumothorax, pt agreeable to transfer. We are waiting for bed availability currently - Continue supplemental O2 PRN -- no requirement at time of discharge - Tylenol, Percocet, Toradol PRN for pain control - No signs of infectious process at this time FENGI: Regular diet Code status: Full code Dispo: Telemetry Admission and Anticipated Discharge Date Admission Date: May 09, 2022 Supervising Physician Co-Signing Physician Notes I personally examined the patient and verified all monsivais points of history and exam, discussed case, and agree with decision making with Dr Bhat. chest pressure off and on. parents to be flying in next 1-2 days. still awaiting bed in [place] Vitals noted, in general he is awake and alert pleasant no distress. HEENT normocephalic atraumatic mucous membranes moist. Breathing unlabored no accessory muscle use good effort. Skin shows no rashes no pallor or icterus. Neuro without focal deficits. Spontaneous pneumothoraxcontinue chest tube, appears to require VATS. Pending transferaccepted, still awaiting a bed Subjective No acute events overnight. Pt continues to experience intermittent dyspnea and L chest pain but it is not worsening. Symptoms remain largely stable. He is still looking forward to transfer and his mother will be arriving from [facility] to visit him tomorrow morning/afternoon. Review of Systems Review of Systems: Per subjective Physical Exam Physical Exam: GENERAL: A&Ox3. NAD. CHEST/LUNGS: Clear breath sounds of R lung leyva, slightly diminished over L lung apex. No crackles, wheezes, rales, rhonchi. HEART: RRR. No m/g/r. No carotid bruits. SKIN: Warm and dry. No rashes or lesions. Mildly tender to palpation over chest tube insertion site Results & Data Results & Data ([facility]) Vital Signs (Past 12 Hours) Vital Signs Temp Pulse Pulse Resp BP Pulse Ox O2 Del Method 05/15/22 06:00 79 05/15/22 08:12 36.6 C 67 16 122/77 96 Room Air 05/15/22 04:03 37 C 57 L 16 112/69 97 Room Air 05/14/22 23:12 76 05/14/22 23:06 37 C 84 18 123/90 97 Room Air Resident Activity Tracking Resident Involvement: Resident Care Provided Care Provided: Adult Hospital Medicine
--- NOTE | 2022-05-15 16:01 | XRay Report ---
SINGLE VIEW CHEST CLINICAL HISTORY: Pneumothorax. FINDINGS: An AP, portable, upright chest radiograph is compared to study dictated 05/14/2022. The card iomediastinal silhouette is unremarkable. A left-sided chest tube is unchanged in position. There is a small residual left apical pneumothorax with approximately 1.6 cm of pleural separation. The lungs are otherwise clear. The bony thorax is grossly intact. IMPRESSION: A left-sided chest tube is unchanged in position and a persistent left apical pneumothora x is similar to yesterday. ACT 112: Negative or not required by law. Electronically signed by: Krish Montano M.D. 05/15/2022 4:00 PM
--- NOTE | 2022-05-15 16:40 | Billing Data ---
Date of Service May 15, 2022 Coding Level of Care Code 01163 SUB INP/OBS CARE
--- NOTE | 2022-05-16 07:17 | Hospitalist Progress Note ---
Date of Service May 16, 2022 Assessment & Plan (1) Spontaneous pneumothorax: Plan Patient is a 21 yo male with PMHx of COVID-19 infection in March 2022 and latent TB (completed treatment in [facility] in Dec-Jan 2020) admitted at [facility] on 05/09/22 due to spontaneous pneumothorax. 05/16: Patient remained stable here at this time. No major issues or concerns at this time. We will try to get him transferred to [facility] if available. We will continue to monitor him while admitted and work on getting him transferred. secretary administrative assistant called [facility] this afternoon around 2 PM, and stated that they may have a bed late this afternoon or this evening. Patient is ready for discharge when accepted to [facility]. Spontaneous pneumothorax - Thora-vent placed in the ER prior to admission - Consulted pulmonology - Chest tube placed on 05/10 as ER thora-vent was in chest wall, not pleural space - Tube placed to 10cm of wall suction - Tube flushed 05/12 with intermittent air leak, suction increased to -20 cm H2O - Recommend PFTs in 6-8 weeks to exclude underlying asthma - PTX unchanged over past 2+ days- transfer accepted to [facility] for VATS pleurodesis - PTX pleural separation of 2 cm -> 6 cm -> 2 cm as of 05/14 per serial CXRs - Given persistence of his pneumothorax, pt agreeable to transfer. We are waiting for bed availability currently - Continue supplemental O2 PRN -- no requirement at time of discharge - Tylenol, Percocet, Toradol PRN for pain control - No signs of infectious process at this time FENGI: Regular diet Code status: Full code Dispo: Telemetry Admission and Anticipated Discharge Date Admission Date: May 09, 2022 Supervising Physician Co-Signing Physician Notes I personally examined the patient and verified all monsivais points of history and exam, discussed case, and agree with decision making with Dr Bhat. sleeping comfortably. waiting for transfer Vitals noted, in general he is awake and alert pleasant no distress. HEENT normocephalic atraumatic mucous membranes moist. Breathing unlabored no accessory muscle use good effort. Skin shows no rashes no pallor or icterus. Neuro without focal deficits. Spontaneous pneumothoraxcontinue chest tube, appears to require VATS. Pending transferaccepted, waiting for a bed Subjective Patient was seen bedside this morning. He has no concerns or complaints at this time. He does still wish to go to [facility] if available. Review of Systems Review of Systems: All systems reviewed & are unremarkable except as noted in HPI & below Physical Exam Physical Exam: GENERAL: A&Ox3. NAD. CHEST/LUNGS: Clear breath sounds of R lung leyva, slightly diminished over L lung apex. No crackles, wheezes, rales, rhonchi. HEART: RRR. No m/g/r. No carotid bruits. SKIN: Warm and dry. No rashes or lesions. Mildly tender to palpation over chest tube insertion site Results & Data Results & Data ([facility]) Vital Signs (Past 12 Hours) Vital Signs Temp Pulse Pulse Resp BP Pulse Ox O2 Del Method 05/16/22 02:10 36.8 C 82 19 130/84 97 Room Air 05/15/22 23:15 79 05/15/22 22:57 36.5 C 70 19 127/90 99 Room Air 05/15/22 20:17 Room Air 05/15/22 19:20 36.8 C 85 18 120/78 96 Room Air Resident Activity Tracking Resident Involvement: Resident Care Provided Care Provided: Adult Hospital Medicine
--- NOTE | 2022-05-16 13:32 | Pulmonology Progress Note ---
Date of Service May 16, 2022 Assessment & Plan (1) Spontaneous pneumothorax: (2) Persistent air leak: Plan He continues to have an intermittent air leak noted in the Shivani drain. I decreased his suction to -10 cm water and the pneumo actually appeared to get slightly bigger. He also has not tolerated waterseal in the past with reaccumulation of his pneumothorax. I think he will need definitive VATS procedure. He is awaiting bed placement to a tertiary center. Admission and Anticipated Discharge Date Admission Date: May 09, 2022 Subjective Patient seen and examined. He appears comfortable. He remains on -20 cm H2O suction via the chest tube. He denies any chest pain or shortness of breath. Review of Systems Review of Systems: All systems reviewed & are unremarkable except as noted in HPI & below Physical Exam Constitutional: WD/WN, vitals as above Neck: trachea midline, no thyromegaly Respiratory: normal respiratory effort, lungs clear to auscultation Cardiovascular: RRR, no murmur, no edema Gastrointestinal (Abdomen): normal bowel sounds, soft, nontender, no hepatosplenomegaly Musculoskeletal: Extremities: extremities normal to inspection Skin: no rashes, warm and dry Lymphatic: no cervical lymphadenopathy Results & Data Results & Data ([facility]) Vital Signs (Past 12 Hours) Vital Signs Temp Pulse Pulse Resp BP Pulse Ox O2 Del Method 05/16/22 06:25 61 05/16/22 11:46 36.8 C 86 16 123/73 98 Room Air 05/16/22 07:44 Room Air 05/16/22 07:37 36.8 C 67 16 107/65 98 Room Air 05/16/22 02:10 36.8 C 82 19 130/84 97 Room Air PG Care Time/CCT Total # of Minutes Spent Total Time Spent with Patient: Total time spent is greater than 50% in coordination of care (as documented) at patient's floor/unit and/or counseling patient: Coding Level of Care Code 44253 SUB INP/OBS CARE 2/35MIN Diagnoses Spontaneous pneumothorax J93.83 Persistent air leak
--- NOTE | 2022-05-16 13:58 | XRay Report ---
XR chest 1V portable HISTORY: 21 years-old Male follow up ptx follow-up study in a patient with left pneumothorax COMPARISON: Chest radiograph May 15, 2022 TECHNIQUE: AP view of the chest FINDINGS: Cardiomediastinal and hilar silhouettes are within normal limits. The right lung is clear. A left-gilson ed chest tube remains in place. Left apical pneumothorax redemonstrated with pleural separation of 2. 7 cm, previously 1.6 cm. No overt pulmonary edema or airspace consolidation. IMPRESSION: Left-sided chest tube in place with small left apical pneumothorax, mildly increased in s ize from yesterday's exam. ACT 112: Negative or not required by law. The above report was generated using voice recognition software. It may contain grammatical, syntax o r spelling errors. Electronically signed by: Jarocho Christensen M.D. 05/16/2022 1:57 PM
--- NOTE | 2022-05-16 17:19 | Billing Data ---
Date of Service May 16, 2022 Coding Level of Care Code 97059 SUB INP/OBS CARE
--- NOTE | 2022-05-17 18:35 | Discharge Summary ---
Date of Service May 16, 2022 Admission HPI Per Admitting Provider Patient is a 21 yo male with PMHx of COVID-19 infection in March 2022 and latent TB (completed treatment in [facility] in Jan 2020) admitted at [facility] on 05/09/22 due to spontaneous pneumothorax. Patient states that on Thursday afternoon, 3 days ago, after walking back to his room from class, he was sitting in a chair and had an acute onset of "left lung pain." Patient describes this pain as "feeling like the left lung was constricting and moving around." He subsequently had some SOB and CAGLE. Patient notes that this sensation was reminiscent of a pain he had about 1 year ago, but at that time he did not seek medical evaluation. Due to the recurrence, he opted to seek medical evaluation for this episode. He first went to [facility] and they subsequently sent him here due to a pneumothorax on CXR. Patient states that aside from COVID 1 month ago, he has had no other recent URI symptoms including no cough, congestion, rhinorrhea, or fever. He denies any recent trauma including no MVC, physical assault, or s ports-related blunt force trauma to the chest wall. No recent travel or flight. 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 He denies abdominal pain, nausea, vomiting, headache, lightheadedness, dizziness, paresthesia, or any other symptoms. In the ER, CXR confirmed a "moderate size left-sided pneumothorax with pleural separation at the left lung apex of 5.8 cm and lateral plelural separation of approximately 3 cm." A left-sided chest tube was placed by ER physician. CBC and CMP are unremarkable. COVID negative. Principal Diagnosis Spontaneous pneumothorax Discharge Exam See progress note same day Discharge Data Allergies Allergy/AdvReac Type Severity Reaction Status Date / Time No Known Allergies Allergy Verified 05/09/22 21:51 Consultations 05/09/22 19:54 ED Decision to Admit Stat 05/10/22 12:02 Consult Pulmonology Routine 05/13/22 10:27 Burn CD for patient Routine Ordered Studies 05/10/22 12:46 CT chest diagnostic wo con Urgent Hospital Course (1) Spontaneous pneumothorax: Plan Patient is a 21 yo male with PMHx of COVID-19 infection in March 2022 and latent TB (completed treatment in [facility] in Jan 2020) admitted at [facility] on 05/09/22 due to spontaneous pneumothorax. 05/16: Patient remained stable here at this time. No major issues or concerns at this time. We will try to get him transferred to [facility] if available. We will continue to monitor him while admitted and work on getting him transferred. sales secretary called [facility] this afternoon around 2 PM, and stated that they may have a bed late this afternoon or this evening. Patient is ready for discharge when accepted to [facility]. Spontaneous pneumothorax - Thora-vent placed in the ER prior to admission - Consulted pulmonology - Chest tube placed on 05/10 as ER thora-vent was in chest wall, not pleural space - Tube placed to 10cm of wall suction - Tube flushed 05/12 with intermittent air leak, suction increased to -20 cm H2O - Recommend PFTs in 6-8 weeks to exclude underlying asthma - PTX unchanged over past 2+ days- transfer accepted to [facility] for VATS pleurodesis - PTX pleural separation of 2 cm -> 6 cm -> 2 cm as of 05/14 per serial CXRs - Given persistence of his pneumothorax, pt agreeable to transfer. Bed available 05/16 - Continue supplemental O2 PRN -- no requirement at time of discharge - Tylenol, Percocet, Toradol PRN for pain control - No signs of infectious process at this time FENGI: Regular diet Code status: Full code Dispo: Telemetry Total Time Total Time Spent Total Time Spent (In Minutes): Less than 30 Discharge Plan Discharge Items Patient Disposition: Transfer Acute Care Hospital Reason For Visit: SPONTANEOUS PNEUMOTHORAX Discharge Diagnosis: Spontaneous pneumothorax Activity: Per Instructions section Non-emergency contact: Primary Care Provider and Balance Assembler Call non-emergency contact if: you have any medication questions, your symptoms worsen, your pain is worsening and you have a fever Follow-up/Referrals: [facility] [Primary Care Provider] - Diet: Regular Addtl Attending Provider Instructions: Patient is a 21 yo male with PMHx of COVID-19 infection in March 2022 and latent TB (completed treatment in [facility] [place] in Dec-Jan 2020) admitted at [facility] on 05/09/22 due to spontaneous pneumothorax. Spontaneous pneumothorax - Thora-vent placed in the ER prior to admission - Consulted pulmonology - Chest tube placed on 05/10 as ER thora-vent was in chest wall, not pleural space - Tube placed to 10cm of wall suction - Tube flushed / with intermittent air leak, suction increased to -20 cm H2O - Recommend PFTs in 6-8 weeks to exclude underlying asthma - PTX unchanged over past 2+ days- transferred to [facility] for VATS pleurodesis - Continue supplemental O2 PRN -- no requirement at time of discharge - Tylenol, Percocet, Toradol PRN for pain control - No signs of infectious process at this time FENGI: Regular diet Code status: Full code Dispo: Telemetry Pending Studies at Discharge: No Stand-Alone Forms: My [facility] Skilled Items Patient informed of condition?: Yes DNR: No Discharge Level of Care: Other Communicable Disease: No Discharge Prognosis: Stable Lines: Peripheral IV Urinary Catheter: No Medications and DC Order Prescriptions: Continued acetaminophen [Tylenol] 325 mg Tablet 650 mg PO DIRECTED PRN (Reason: PAIN/FEVER) ibuprofen [Advil] 200 mg Tablet 200 mg PO DIRECTED PRN (Reason: PAIN/FEVER) Discharge Orders: Discharge Order (Routine); Ordered 05/15/22 Ordered By: Roxy López Admission Data Admit Date/Time: 05/09/22 21:31 Attending Provider: Alexx Nelson Admit Provider: Gretta Munroe Primary Care Provider: [place],[facility] Other Providers: Marcie Hogue ; Eli Oswald ; Drew Dallas Other Interventions: Discharge Summary Assessment (RN) Last Done: 05/16/22 18:47 Coding Level of Care Code HOSP INP/OBS DISCH 30 MIN/LESS Diagnoses Spontaneous pneumothorax J93.83 Comment disregard 232 same day
--- NOTE | 2022-05-22 13:48 | Coding Query ---
this one is really out of my expertise to be able to answer. i hate to punt, but if you truly need clarification, you'll need to query pulmonary. sorry/thanks! CODING QUERY To promote full compliance with coding requirements relating to patient care, provider participation is requested in all cases of snow fence erector uncertainty. Please assist us with the question(s) below: Coding Question(s): Patient admitted with spontaneous pneumothorax . Initial Chest tube inserted was found to be in chest wall. A 2nd Chest tube was inserted by Pulmonary who stated that the Pneumo Vent had failed . Please check below- if known or suspected -if the 2nd Chest Tube insertion was due to a complication of the procedure OR if an expected occurrenceThanks for your help! Jamshid Velasquez, [employer] The 2nd Chest Tube insertion was due to a complication of the procedure (specify) The 2nd Chest Tube insertion is an expected occurrence of the procedure Cannot clinically correlate if the 2nd Chest tube is an expected occurrence or complication of the procedure Other; Please document: Principal Diagnosis: "that condition established after study, to be chiefly responsible for occasioning the admission of the patient to the hospital for care." Co-Existing Principal Diagnosis: "when two or more diagnoses equally meet the criteria for principal diagnosis as determined by the circumstances of admission, diagnostic work up, and/or therapy provided, and the Alphabetic Index, Tabular List, or another coding guideline does not provide sequencing direction, any one of the diagnoses may be sequenced first." "When the physician has documented what appears to be a current diagnosis in the body of the record, but has not included the diagnosis in the final diagnostic statement, the physician should be asked whether the diagnosis should be added." (Source Coding Clinic 2 QTR90. p3-4) [place]ILLA
--- NOTE | 2022-05-27 09:16 | Coding Query ---
CODING QUERY To promote full compliance with coding requirements relating to patient care, provider participation is requested in all cases of credit interviewer uncertainty. Please assist us with the question(s) below: Coding Question(s): Pt admitted with spontaneous pneumothorax. Initial chest tube inserted was found in the chest wall. A 2nd Chest tube was inserted .Pulmonary notes stated the Pneumo Vent failed . Please check below, if known or suspected, if the initial chest tube insertion positioned in the chest wall was a complication of the procedure or expected occurrence. Thanks for your help. Jamshid Velasquez, [facility] Physician's Response(s): x____ The Initial Chest Tube insertion found in chest wall was a c omplication of the procedure The Initial Chest Tube insertion found in chest wall is an expected occurrence of the procedure Cannot Clinicaly correlate if the intial chest tube found in the chest wall was a complication or expected occurrence Other: Please document: Principal Diagnosis: "that condition established after study, to be chiefly responsible for occasioning the admission of the patient to the hospital for care." Co-Existing Principal Diagnosis: "when two or more diagnoses equally meet the criteria for principal diagnosis as determined by the circumstances of admission, diagnostic work up, and/or therapy provided, and the Alphabetic Index, Tabular List, or another coding guideline does not provide sequencing direction, any one of the diagnoses may be sequenced first." "When the physician has documented what appears to be a current diagnosis in the body of the record, but has not included the diagnosis in the final diagnostic statement, the physician should be asked whether the diagnosis should be added." (Source Coding Clinic 2 QTR90. p3-4) [place]
== END 2022-05-16 19:40 | disposition short-term general hospital (02) | DRG 200 ==
LOC: ED 18:05 → SUATTDRO 21:31 → 2E 21:31